=== PATIENT | male | born 1945 | race Caucasian/White ===

== ENCOUNTER 2023-02-06 10:48 | Emergency (ER) | payer MEDICARE ==
--- NOTE | 2023-02-06 11:28 | ED ---
Lower Extremity Injury HPI - General Chief Complaint: Extremity Injury, Lower Stated Complaint: L Leg poss Blood Clot Time Seen by Provider: 02/06/23 11:05 Source: patient, RN notes reviewed Mode of arrival: ambulatory Limitations: no limitations - History of Present Illness Initial Comments: Patient is a 77-year-old male presenting to the emergency room at the direction of urgent care for further evaluation of left knee pain with swelling in the left knee and lower extremity. He reports that the symptoms have been ongoing for approximately 2 weeks. He denies any injury. He reports that the pain is worse in the morning and improves throughout the day. He reports that the swelling worsens throughout the day and is better after waking in the morning. He denies any wounds, injury, redness, warmth, numbness, tingling, range of motion impairment, or calf tenderness. He does have a history of arthritis in his knee with a joint spacer placed 21 years ago to the left knee. In addition to his orthopedic history has a past medical history significant for hypertension. - Related Data Allergies Allergy/AdvReac Type Severity Reaction Status Date / Time No Known Allergies Allergy Verified 02/06/23 10:59 Review of Systems ROS Statement: Those systems with pertinent positive or pertinent negative responses have been documented in the HPI. ROS Other: All systems not noted in ROS Statement are negative. Past Medical History Past Medical History: Hypertension History of Any Multi-Drug Resistant Organisms: None Reported Past Surgical History: Orthopedic Surgery Past Anesthesia/Blood Transfusion Reactions: No Reported Reaction Past Psychological History: No Psychological Hx Reported Smoking Status: Never smoker Past Alcohol Use History: Daily Past Drug Use History: None Reported General Exam Limitations: no limitations General appearance: alert, in no apparent distress Head exam: Present: atraumatic, normocephalic, normal inspection Eye exam: Present: normal appearance, PERRL, EOMI. Absent: scleral icterus, conjunctival injection, periorbital swelling ENT exam: Present: normal exam Neck exam: Present: normal inspection Respiratory exam: Absent: respiratory distress, accessory muscle use Cardiovascular Exam: Present: regular rate GI/Abdominal exam: Absent: distended Left Knee exam: Present: full ROM, swelling, effusion, full knee extension. Absent: abrasion, laceration, ecchymosis, crepitus, dislocation, erythema Lower Leg exam: Present: swelling. Absent: tenderness, ecchymosis, erythema, Homans' sign Neurovascular tendon exam: Present: no vascular compromise Gait: observed and normal Back exam: Present: normal inspection Neurological exam: Present: alert, oriented X3, CN II-XII intact Psychiatric exam: Present: normal affect, normal mood Skin exam: Present: warm, dry, intact, normal color. Absent: rash Course Vital Signs 02/06/23 02/06/23 11:00 13:36 Temperature 98.1 F 97.9 F Pulse Rate 96 64 Respiratory 16 18 Rate Blood Pressure 164/78 163/75 O2 Sat by Pulse 97 99 Oximetry Medical Decision Making - Medical Decision Making Was pt. sent in by a medical professional or institution (, PA, ENDOSCOPY TECHNICAN, urgent care, hospital, or alf...) When possible be specific @ -Yes, sent to the emergency room by urgent care Did you speak to anyone other than the patient for history (EMS, parent, family, police, friend...)? What history was obtained from this source @ -No Did you review nursing and triage notes (agree or disagree)? Why? @ -I reviewed and agree with nursing and triage notes Were old charts reviewed (outside hosp., previous admission, EMS record, old EKG, old radiological studies, urgent care reports/EKG's, alf records)? Report findings @ -No old charts were reviewed Differential Diagnosis (chest pain, altered mental status, abdominal pain women, abdominal pain men, vaginal bleeding, weakness, fever, dyspnea, syncope, heada irma, dizziness, GI bleed, back pain, seizure, CVA, palpatations, mental health, musculoskeletal)? @ -Differential Musculoskeletal Muscular strain, contusion, ligament sprain, fracture, arthritis, septic arthritis, bursitis, cellulitis, muscle spasm, nerve compression, DVT, arterial occlusion, herpes zoster, electrolyte abnormality, tumor.... This is not meant to be in all inclusive list EKG interpreted by me (3pts min.). @ -None done X-rays interpreted by me (1pt min.). @ -X-ray left knee: Moderate suprapatellar bursal fluid collection, and postsurgical changes, no fracture or dislocation. CT interpreted by me (1pt min.). @ -None done U/S (1pt. min.). @ -Ultrasound venous Doppler left lower extremity report per radiologist not interpreted by me: No evidence of DVT of the left lower extremity, left popliteal fossa complex fluid collection left intra-patellar fluid collection What testing was considered but not performed or refused? (CT, X-rays, U/S, labs)? Why? @ -None What meds were considered but not given or refused? Why? @ -Analgesics offered and declined Did you discuss the management of the patient with other professionals (professionals i.e. Dr., PA, ENDOSCOPY TECHNICAN, lab, RT, psych nurse, social science instructor, electrochemist, teacher, landing signal officer, medical case manager)? Give summary @ -No Was smoking cessation discussed for >3mins.? @ -No Was critical care preformed (if so, how long)? @ -No Were there social determinants of health that impacted care today? How? (Homelessness, low income, unemployed, alcoholism, drug addiction, transportation, low edu. Level, literacy, decrease access to med. care, fdc, rehab)? @ -No Was there de-escalation of care discussed even if they declined (Discuss DNR or withdrawal of care, Hospice)? DNR status @ -No What co-morbidities impacted this encounter? (DM, HTN, Smoking, COPD, CAD, Cancer, CVA, ARF, Chemo, Hep., AIDS, mental health diagnosis, sleep apnea, morbid obesity)? @ -None Was patient admitted / discharged? Hospital course, mention meds given and route, prescriptions, significant lab abnormalities, going to OR and other pertinent info. @ -77-year-old male presenting for evaluation of left knee pain with swelling in the left knee and lower extremity on going for 2 weeks without any trauma. Analgesics offered and declined. Pain consistent with osteoarthritis and swelling consistent with dependent edema secondary to osteoarthritis worsening throughout the day however urgent care concerned regarding possibility of DVT will proceed with x-ray along with venous Doppler. No indication for any laboratory studies. Ultrasound negative for DVT, x-ray and ultrasound consistent with moderate left knee effusion and osteoarthritis. Findings discussed with patient at length. No indication for further testing. Encouraged avoidance of high impact activities, range of motion, rest and ice when possible. Encouraged to utilize o [id number] Tylenol or ibuprofen for pain as needed recommend following up with your orthopedist or orthopedist online content coordinator along with your primary care provider. Information of on-call orthopedist provided. Questions and concerns answered. Return parameters to the emergency room discussed. Will discharge home in stable condition with [id number] analgesics, gentle range of motion and rest along with follow-up with primary care provider and orthopedist for left knee effusion and left arthritis. Undiagnosed new problem with uncertain prognosis? @ -No Drug Therapy requiring intensive monitoring for toxicity (Heparin, Nitro, Insulin, Cardizem)? @ -No Were any procedures done? @ -No Diagnosis/symptom? @ -Left knee effusion Acute, or Chronic, or Acute on Chronic? @ -Acute Uncomplicated (without systemic symptoms) or Complicated (systemic symptoms)? @ -Uncomplicated Side effects of treatment? @ -No Exacerbation, Progression, or Severe Exacerbation? @ -No Poses a threat to life or bodily function? How? (Chest pain, [place], [place], pneumonia, PE, COPD, DKA, ARF, appy, cholecystitis, CVA, Diverticulitis, Homicidal, Suicidal, threat to staff... and all critical care pts) @ -No Diagnosis/symptom? @ -Left knee osteoarthritis Acute, or Chronic, or Acute on Chronic? @ -Acute Uncomplicated (without systemic symptoms) or Complicated (systemic symptoms)? @ -Uncomplicated Side effects of treatment? @ -none Exacerbation, Progression, or Severe Exacerbation] @ -no Poses a threat to life or bodily function? @ -no Case discussed with Dr. Aguayo. - Radiology Data Radiology results: report reviewed, image reviewed Disposition Clinical Impression: Knee effusion, left, Arthritis of left knee Disposition: HOME SELF-CARE Condition: Stable Instructions (If sedation given, give patient instructions): Knee Pain (ED) Additional Instructions: Please utilize [id number] Motrin or Tylenol arthritis for pain as needed. Gentle range of motion encouraged. Avoid high impact activities. Apply ice and elevate joint when possible. Please follow-up with orthopedist. Please return to the Emergency Department if symptoms worsen or any other concerns. Is patient prescribed a controlled substance at d/c from ED?: No Referrals: Manan Arizmendi DO [Primary Care Provider] - 1-2 days Aurelio Guerra MD [Medical Doctor] - 1-2 days Time of Disposition: 13:25
--- NOTE | 2023-02-06 11:55 | XR ---
EXAMINATION TYPE: XR knee complete LT DATE OF EXAM: 02/06/2023 COMPARISON: NONE HISTORY: pain swelling TECHNIQUE: Three views are submitted. FINDINGS: There is postsurgical change compatible with previous hemiarthroplasty. Chondrocalcinosis involving t he lateral compartment and moderate hypertrophic changes of the patellofemoral compartment. Moderate suprapatellar bursal fluid collection. Vascular calcifications. Osseous structures are intact. No ac [place] fracture seen. IMPRESSION: 1. Postsurgical changes moderate to large sized patellar bursal collection containing calcifications. May be posttraumatic or postinflammatory. Correlate clinically. 2. Osteoarthritis versus deposition arthropathy of the lateral compartment and patellofemoral joint.
--- NOTE | 2023-02-06 12:47 | US ---
EXAMINATION TYPE: US venous doppler duplex LE LT DATE OF EXAM: 02/06/2023 12:28 PM COMPARISON: NONE CLINICAL INDICATION: Male, 77 years old with history of pain swelling; anterior knee pain, calf swell ing, post knee tightness x 3 weeks SIDE PERFORMED: Left TECHNIQUE: The lower extremity deep venous system is examined utilizing real time linear array sonog guille with graded compression, doppler sonography and color-flow sonography. VESSELS IMAGED: Common Femoral Vein Deep Femoral Vein Greater Saphenous Vein * Femoral Vein Popliteal Vein Small Saphenous Vein * Proximal Calf Veins (* superficial vessels) Grayscale, color doppler, spectral doppler imaging performed of the deep veins of the lower extremiti es. There is normal flow and compressibility. Left Leg: Negative for DVT Left posterior fossa, complex area appears to extend from joint space measuring 5.9x2.5x1.4cm Left calf edema noted Left anterior knee at area on concern scanned, fluid collection noted in infrapatellar region waveforms appear arterialized rather than respirophasic IMPRESSION: 1. No ultrasound evidence for deep venous thrombosis of the left lower extremity. 2. Left popliteal fossa complex fluid collection which may represent a complex Sosa's cyst versus he matoma. 3. Left infrapatellar fluid collection possibly representing a seroma.
[2023-02-06 13:41] VITALS: BP 163/75; PULSE 64; RESP 18; TEMP 97.9
== END 2023-02-06 13:42 | disposition home or self-care (01) ==
LOC: EC 10:48
DX: M17.12 Unilateral primary osteoarthritis, left knee (principal); M25.462 Effusion, left knee; I10 Essential (primary) hypertension
CPT/HCPCS: 99284

== ENCOUNTER 2024-11-05 20:19 | Inpatient (IN) | payer MEDICARE ==
[2024-11-05 21:39] LABS: AST 27 U/L (17-59); African American GFR (CKD) 46 (>60 ml/min/1.73 sqM); Albumin 4.1 g/dL (3.5-5.0); Alkaline Phosphatase 56 U/L (38-126); Anion Gap 18 mmol/L; Blood Urea Nitrogen 20 mg/dL (9-20); Carbon Dioxide 15 mmol/L (22-30); Chloride 101 mmol/L (98-107); Glucose 142 mg/dL (74-99); Non-African American GFR(CKD) 40 (>60 ml/min/1.73 sqM); Potassium 4.5 mmol/L (3.5-5.1); Sodium 134 mmol/L (137-145); Total Bilirubin 1.2 mg/dL (0.2-1.3); Total Protein 6.7 g/dL (6.3-8.2)
[2024-11-05] MEDS: LACTATED RINGERS 1,000 ML IV SCH ×3 (21:40→23:47)
[2024-11-05 21:42] LABS: INR 1.1 (<1.2); Partial Thromboplastin Time 24.1 sec (22.0-30.0); Prothrombin Time 12.3 sec (10.0-12.5)
[2024-11-05 21:45] LABS: ALT 32 U/L (4-49)
--- NOTE | 2024-11-05 21:52 | ED ---
General Adult HPI - General Source: patient Mode of arrival: wheelchair Limitations: no limitations - History of Present Illness Onset/Timin -: hour(s) Location: abdomen Radiation: non-radiation Quality: dull Consistency: constant Improves with: none Worsens with: none Associated Symptoms: nausea/vomiting Treatments Prior to Arrival: none <Parminder Aguayo - Last Filed: 11/05/24 22:24> <Yara Self - Last Filed: 11/06/24 09:14> - General Chief complaint: Nausea/Vomiting/Diarrhea Stated complaint: Shakes/Abd Pain Time Seen by Provider: 11/05/24 20:36 - History of Present Illness Initial comments: This patient is an 79-year-old man who presents to have evaluation of epigastric discomfort and shaking. The patient noticed onset of epigastric discomfort and shaking around 3 in the morning. Patient states that he was eventually able to get back to sleep but symptoms recurred today after he took a glass of milk. He has had some associated nausea. Patient states no change in bowel movements or urination. (Parminder Aguayo) - Related Data Allergies Allergy/AdvReac Type Severity Reaction Status Date / Time No Known Allergies Allergy Verified 11/05/24 20:33 Review of Systems ROS Other: All systems not noted in ROS Statement are negative. Constitutional: Reports: chills. Denies: weakness ENT: Denies: throat pain, congestion Respiratory: Denies: cough, dyspnea Cardiovascular: Denies: chest pain, palpitations, edema, syncope Gastrointestinal: Reports: abdominal pain, nausea. Denies: vomiting, diarrhea, constipation, melena, hematochezia Genitourinary: Denies: dysuria, hematuria, testicular pain, testicular mass Musculoskeletal: Denies: back pain Skin: Denies: rash Neurological: Denies: headache, weakness, numbness <Parminder Aguayo - Last Filed: 11/05/24 22:24> ROS Other: All systems not noted in ROS Statement are negative. <Yara Self - Last Filed: 11/06/24 09:14> ROS Statement: Those systems with pertinent positive or pertinent negative responses have been documented in the HPI. Past Medical History Past Medical History: Hypertension History of Any Multi-Drug Resistant Organisms: None Reported Past Surgical History: Orthopedic Surgery Additional Past Surgical History / Comment(s): Left knee replacement, rt eye surgery Past Anesthesia/Blood Transfusion Reactions: No Reported Reaction Past Psychological History: No Psychological Hx Reported Smoking Status: Never smoker Past Alcohol Use History: Daily Past Drug Use History: None Reported <Parminder Aguayo - Last Filed: 11/05/24 22:24> General Exam Limitations: no limitations General appearance: alert, in no apparent distress Head exam: Present: atraumatic, normocephalic Eye exam: Present: normal appearance. Absent: scleral icterus, conjunctival injection ENT exam: Present: normal oropharynx Neck exam: Present: normal inspection Respiratory exam: Present: normal lung sounds bilaterally. Absent: respiratory distress, wheezes, rales, rhonchi, stridor, accessory muscle use Cardiovascular Exam: Present: normal rhythm, tachycardia, normal heart sounds. Absent: systolic murmur, diastolic murmur, rubs, gallop GI/Abdominal exam: Present: soft. Absent: distended, tenderness, guarding, rebound, rigid, mass Extremities exam: Present: normal inspection, normal capillary refill. Absent: pedal edema, calf tenderness Back exam: Present: normal inspection. Absent: CVA tenderness (R), CVA tenderness (L) Neurological exam: Present: alert Skin exam: Present: warm, dry, intact, normal color. Absent: rash <Parminder Aguayo - Last Filed: 11/05/24 22:24> Course Vital Signs 11/05/24 11/05/24 11/06/24 20:27 23:33 01:30 Temperature 100.0 F H Pulse Rate 128 H 92 94 Pulse Rate [ Pulse Oximetery ] Respiratory 18 20 18 Rate Blood Pressure 119/65 97/63 108/76 Blood Pressure [Left Arm Sitting] O2 Sat by Pulse 96 94 L 97 Oximetry 11/06/24 11/06/24 11/06/24 02:00 03:38 05:45 Temperature 98.6 F 98.3 F 97.5 F L Pulse Rate 78 Pulse Rate [ 81 Pulse Oximetery ] Respiratory 16 18 Rate Blood Pressure 96/62 Blood Pressure 123/81 [Left Arm Sitting] O2 Sat by Pulse 95 97 Oximetry 11/06/24 05:50 Temperature Pulse Rate 78 Pulse Rate [ Pulse Oximetery ] Respiratory 15 Rate Blood Pressure Blood Pressure [Left Arm Sitting] O2 Sat by Pulse 99 Oximetry EKG Findings - EKG Comments: EKG Findings:: Possible old inferior infarct. - EKG Results: EKG: interpreted by ERMD, sinus rhythm, normal axis, normal ST/T EKG shows: tachycardia (Rate 111 bpm) <Parminder Aguayo - Last Filed: 11/05/24 22:24> Medical Decision Making - Lab Data Result diagrams: 11/05/24 20:55 11/05/24 20:55 <Parminder Aguayo - Last Filed: 11/05/24 22:24> - Lab Data Result diagrams: 11/06/24 03:33 11/06/24 03:33 <Yara Self - Last Filed: 11/06/24 09:14> - Medical Decision Making Was patient admitted / discharged? Hospital course, mention meds given and route, prescriptions, significant lab abnormalities, going to OR and other pertinent info. @ -Admission-patient was signed out to myself pending completion of urinalysis. He is an 79-year-old gentleman who presented today for shaking, malaise, fever and nausea. Denies additional history. Labs here were significant for lactic acid elevation of 6.4, patient denies history of kidney disease he has a GFR of 40 with creatinine of 1.61. Given no known history of kidney disease I suspect this is secondary to an YARI. Patient did have mild leukocytosis with white blood cell count 11.68, neutrophils elevated of 10.70, urinalysis did require a straight cath specimen, and showed 1+ protein, trace blood, suspect secondary to straight cath however, added KUB to ensure no signs of ureterolithiasis, trace ketones, moderate leukocyte esterase, negative nitrates,, 20 white blood cells, rare white blood cell clumps, rare yeast. Diflucan ordered. Rocephin has a lready been given. Due to significantly elevated lactic acid and YARI with UTI, discussed with patient admission for observation. He is agreeable plan of care. On my assessment and exam he is well-appearing, his abdomen is soft and nontender, no CVA tenderness. Maintenance fluids were ordered. Repeat lactic downtrending to 2.1. Bladder scan showed 0 cc in his bladder. Case discussed with MARINA Partida who kindly excepted patient for admission. Undiagnosed new problem with uncertain prognosis? @ -[No] Drug Therapy requiring intensive monitoring for toxicity (Heparin, Nitro, Insulin, Cardizem)? @ -[No] Were any procedures done? @ -[No] Diagnosis/symptom? @ -YARI, severe sepsis, UTI Acute, or Chronic, or Acute on Chronic? @Acute Uncomplicated (without systemic symptoms) or Complicated (systemic symptoms)? @Complicated Side effects of treatment? @ -[No] Exacerbation, Progression, or Severe Exacerbation? @ -[No] Poses a threat to life or bodily function? How? (Chest pain, USA, RI, pneumonia, PE, COPD, DKA, ARF, appy, cholecystitis, CVA, Diverticulitis, Homicidal, Suicidal, threat to staff... and all critical care pts) @ -Potentially, if left untreated could lead to septic shock and (Yara Self) - Lab Data Lab Results 11/05/24 11/05/24 11/05/24 Range/Units 20:55 20:55 20:55 WBC 11.68 H (4.50-10.00) 10*3/uL RBC 4.34 L (4.40-5.60) 10*6/uL Hgb 14.6 (13.0-17.0) g/dL Hct 41.9 (39.6-50.0) % MCV 96.5 (80.0-97.0) fL MCH 33.6 H (27.0-32.0) pg MCHC 34.8 (32.0-37.0) g/dL Plt Count 238 (140-440) 10*3/uL MPV 9.9 (9.5-12.2) fL Immature Gran % (Auto) 0.4 % Neutrophils % 91.6 % Lymphocytes % 5.9 % Monocytes % 1.7 % Eosinophils % 0.2 % Basophils % 0.2 % Immature Gran # 0.05 H (0.00-0.04) 10*3/uL Neutrophils # 10.70 H (1.80-7.70) 10*3/uL Lymphocytes # 0.69 L (0.90-5.00) 10*3/uL Monocytes # 0.20 (0.20-1.00) 10*3/uL Eosinophils # 0.02 L (0.04-0.35) 10*3/uL Basophils # 0.02 (0.00-0.10) 10*3/uL PT 12.3 (10.0-12.5) sec INR 1.1 (<1.2) APTT 24.1 (22.0-30.0) sec Sodium 134 L (137-145) mmol/L Potassium 4.5 (3.5-5.1) mmol/L Chloride 101 (98-107) mmol/L Carbon Dioxide 15 L (22-30) mmol/L Anion Gap 18 mmol/L BUN 20 (9-20) mg/dL Creatinine 1.61 H (0.66-1.25) mg/dL Est GFR (CKD-EPI)AfAm 46 (>60 ml/min/1.73 sqM) Est GFR (CKD-EPI)NonAf 40 (>60 ml/min/1.73 sqM) Glucose 142 H (74-99) mg/dL Lactic Ac Sepsis Rflx Plasma Lactic Acid [place] (0.7-2.0) mmol/L Calcium 10.0 (8.4-10.2) mg/dL Total Bilirubin 1.2 (0.2-1.3) mg/dL AST 27 (17-59) U/L ALT 32 (4-49) U/L Alkaline Phosphatase 56 (38-126) U/L Total Protein 6.7 (6.3-8.2) g/dL Albumin 4.1 (3.5-5.0) g/dL Urine Color Urine Appearance (Clear) Urine pH (5.0-8.0) Ur Specific [place] (1.001-1.035) Urine Protein (Negative) Urine Glucose (UA) (Negative) Urine Ketones (Negative) Urine Blood (Negative) Urine Nitrite (Negative) Urine Bilirubin (Negative) Urine Urobilinogen (<2.0) mg/dL Ur Leukocyte Esterase (Negative) Urine RBC (0-5) /hpf Urine WBC (0-5) /hpf Urine WBC Clumps (None) /hpf Ur Squamous Epith Cells (0-4) /hpf Cellular Casts (0) /lpf Hyaline Casts (0-2) /lpf Urine Mucus (None) /hpf Urine Yeast (Budding) (None) /hpf Influenza Type A (PCR) (Not Detectd) Influenza Type B (PCR) (Not Detectd) RSV (PCR) (Not Detectd) SARS-CoV-2 (PCR) (Not Detectd) 04/18/25 04/18/25 04/18/25 Range/Units 20:55 22:13 22:20 WBC (4.50-10.00) 10*3/uL RBC (4.40-5.60) 10*6/uL Hgb (13.0-17.0) g/dL Hct (39.6-50.0) % MCV (80.0-97.0) fL MCH (27.0-32.0) pg MCHC (32.0-37.0) g/dL Plt Count (140-440) 10*3/uL MPV (9.5-12.2) fL Immature Gran % (Auto) % Neutrophils % % Lymphocytes % % Monocytes % % Eosinophils % % Basophils % % Immature Gran # (0.00-0.04) 10*3/uL Neutrophils # (1.80-7.70) 10*3/uL Lymphocytes # (0.90-5.00) 10*3/uL Monocytes # (0.20-1.00) 10*3/uL Eosinophils # (0.04-0.35) 10*3/uL Basophils # (0.00-0.10) 10*3/uL PT (10.0-12.5) sec INR (<1.2) APTT (22.0-30.0) sec Sodium (137-145) mmol/L Potassium (3.5-5.1) mmol/L Chloride (98-107) mmol/L Carbon Dioxide (22-30) mmol/L Anion Gap mmol/L BUN (9-20) mg/dL Creatinine (0.66-1.25) mg/dL Est GFR (CKD-EPI)AfAm (>60 ml/min/1.73 sqM) Est GFR (CKD-EPI)NonAf (>60 ml/min/1.73 sqM) Glucose (74-99) mg/dL Lactic Ac Sepsis Rflx Y Plasma Lactic Acid [place] 6.4 H* (0.7-2.0) mmol/L Calcium (8.4-10.2) mg/dL Total Bilirubin (0.2-1.3) mg/dL AST (17-59) U/L ALT (4-49) U/L Alkaline Phosphatase (38-126) U/L Total Protein (6.3-8.2) g/dL Albumin (3.5-5.0) g/dL Urine Color Urine Appearance (Clear) Urine pH (5.0-8.0) Ur Specific [place] (1.001-1.035) Urine Protein (Negative) Urine Glucose (UA) (Negative) Urine Ketones (Negative) Urine Blood (Negative) Urine Nitrite (Negative) Urine Bilirubin (Negative) Urine Urobilinogen (<2.0) mg/dL Ur Leukocyte Esterase (Negative) Urine RBC (0-5) /hpf Urine WBC (0-5) /hpf Urine WBC Clumps (None) /hpf Ur Squamous Epith Cells (0-4) /hpf Cellular Casts (0) /lpf Hyaline Casts (0-2) /lpf Urine Mucus (None) /hpf Urine Yeast (Budding) (None) /hpf Influenza Type A (PCR) Not Detected (Not Detectd) Influenza Type B (PCR) Not Detected (Not Detectd) RSV (PCR) Not Detected (Not Detectd) SARS-CoV-2 (PCR) Not Detected (Not Detectd) 11/05/24 11/06/24 11/06/24 Range/Units 23:35 01:35 02:11 WBC (4.50-10.00) 10*3/uL RBC (4.40-5.60) 10*6/uL Hgb (13.0-17.0) g/dL Hct (39.6-50.0) % MCV (80.0-97.0) fL MCH (27.0-32.0) pg MCHC (32.0-37.0) g/dL Plt Count (140-440) 10*3/uL MPV (9.5-12.2) fL Immature Gran % (Auto) % Neutrophils % % Lymphocytes % % Monocytes % % Eosinophils % % Basophils % % Immature Gran # (0.00-0.04) 10*3/uL Neutrophils # (1.80-7.70) 10*3/uL Lymphocytes # (0.90-5.00) 10*3/uL Monocytes # (0.20-1.00) 10*3/uL Eosinophils # (0.04-0.35) 10*3/uL Basophils # (0.00-0.10) 10*3/uL PT (10.0-12.5) sec INR (<1.2) APTT (22.0-30.0) sec Sodium (137-145) mmol/L Potassium (3.5-5.1) mmol/L Chloride (98-107) mmol/L Carbon Dioxide (22-30) mmol/L Anion Gap mmol/L BUN (9-20) mg/dL Creatinine (0.66-1.25) mg/dL Est GFR (CKD-EPI)AfAm (>60 ml/min/1.73 sqM) Est GFR (CKD-EPI)NonAf (>60 ml/min/1.73 sqM) Glucose (74-99) mg/dL Lactic Ac Sepsis Rflx Y Plasma Lactic Acid [place] 2.1 H* (0.7-2.0) mmol/L Calcium (8.4-10.2) mg/dL Total Bilirubin (0.2-1.3) mg/dL AST (17-59) U/L ALT (4-49) U/L Alkaline Phosphatase (38-126) U/L Total Protein (6.3-8.2) g/dL Albumin (3.5-5.0) g/dL Urine Color Yellow Urine Appearance Cloudy (Clear) Urine pH 5.5 (5.0-8.0) Ur Specific [place] 1.022 (1.001-1.035) Urine Protein 1+ H (Negative) Urine Glucose (UA) Negative (Negative) Urine Ketones Negative (Negative) Urine Blood Trace H (Negative) Urine Nitrite Negative (Negative) Urine Bilirubin 1+ H (Negative) Urine Urobilinogen 2.0 (<2.0) mg/dL Ur Leukocyte Esterase Moderate H (Negative) Urine RBC 4 (0-5) /hpf Urine WBC 20 H (0-5) /hpf Urine WBC Clumps Rare H (None) /hpf Ur Squamous Epith Cells <1 (0-4) /hpf Cellular Casts 1 (0) /lpf Hyaline Casts 110 H (0-2) /lpf Urine Mucus Occasional H (None) /hpf Urine Yeast (Budding) Rare H (None) /hpf Influenza Type A (PCR) (Not Detectd) Influenza Type B (PCR) (Not Detectd) RSV (PCR) (Not Detectd) SARS-CoV-2 (PCR) (Not Detectd) Disposition <Parminder Aguayo - Last Filed: 11/05/24 22:24> <Yara Self - Last Filed: 11/06/24 09:14> Clinical Impression: YARI (acute kidney injury), UTI (urinary tract infection), Hematuria, Sepsis Disposition: ADMITTED IP TO THIS HOSP Condition: Stable
[2024-11-05 22:03] LABS: Basophils # (A) 0.02 10*3/uL (0.00-0.10); Basophils % (A) 0.2 %; Eosinophils # (A) 0.02 10*3/uL (0.04-0.35); Eosinophils % (A) 0.2 %; HCT 41.9 % (39.6-50.0); HGB 14.6 g/dL (13.0-17.0); Lymphocytes # (A) 0.69 10*3/uL (0.90-5.00); Lymphocytes % (A) 5.9 %; MCH 33.6 pg (27.0-32.0); MCHC 34.8 g/dL (32.0-37.0); MCV 96.5 fL (80.0-97.0); Mean Platelet Volume 9.9 fL (9.5-12.2); Monocytes % (A) 1.7 %; Neutrophils % (A) 91.6 %; Platelet Count 238 10*3/uL (140-440); RBC 4.34 10*6/uL (4.40-5.60); RDW 12.2 % (11.5-14.5); WBC 11.68 10*3/uL (4.50-10.00)
[2024-11-05] MEDS: ACETAMINOPHEN TAB 325 MG TAB PO STA (22:08)
[2024-11-05] MEDS: ONDANSETRON 4 MG/2 ML VIAL IVP STA (22:09)
--- NOTE | 2024-11-05 22:32 | XR ---
EXAMINATION TYPE: XR chest 1V portable DATE OF EXAM: 11/05/2024 9:34 PM COMPARISON: None. CLINICAL INDICATION: Male, 79 years old with history of Fever, TECHNIQUE: XR chest 1V portable views of the chest are obtained. FINDINGS: Demonstrated are scattered senescent parenchymal change. There is no evidence for focal infiltrate. The heart is stable. Hilar and mediastinal structures are within normal limits. Degenerative changes are seen of the dorsal spine. IMPRESSION: 1. Chronic changes without evidence for acute pulmonary disease. [facility], , 11/05/2024 10:30 PM
[2024-11-05 23:22] LABS: Influenza A Not Detected (Not Detectd); Influenza B Not Detected (Not Detectd); RSV Not Detected (Not Detectd)
[2024-11-06] MEDS: LACTATED RINGERS 1,000 ML IV ONE (00:09)
[2024-11-06 00:19] LABS: Appearance,Urine Cloudy (Clear); Bilirubin,Urine 1+ (Negative); Blood,Urine Trace (Negative); Budding Yeast,Urine Rare /hpf; Cellular Casts,Urine 1 /lpf (0); Color,Urine Yellow; Glucose,Urine (UA) Negative (Negative); Hyaline Casts,Urine 110 /lpf (0-2); Ketones,Urine Negative (Negative); Leukocyte Esterase,Urine Moderate (Negative); Mucus,Urine Occasional /hpf; Nitrite,Urine Negative (Negative); PH, Urine 5.5 (5.0-8.0); Protein,Urine 1+ (Negative); RBC,Urine 4 /hpf (0-5); Specific Gravity,Urine 1.022 (1.001-1.035); Squamous Epithelial Cell,Urine <1 /hpf (0-4); WBC,Urine 20 /hpf (0-5)
[2024-11-06] MEDS: FLUCONAZOLE 150 MG TAB PO STA (01:25)
[2024-11-06] MEDS ORDERED: ONDANSETRON 4 MG/2 ML VIAL IVP PRN (02:33)
[2024-11-06] MEDS ORDERED: CALCIUM CARBONATE 500 MG CHEWABLE PO PRN (02:33)
[2024-11-06] MEDS ORDERED: NALOXONE 0.4 MG/ML 1 ML VIAL IV PRN (02:33)
[2024-11-06] MEDS ORDERED: MAG HYDROX/AL HYDROX/SIMETH 30 ML CUP PO PRN (02:33)
[2024-11-06 03:44] LABS: Basophils # (A) 0.07 10*3/uL (0.00-0.10); Basophils % (A) 0.3 %; Eosinophils # (A) 0.03 10*3/uL (0.04-0.35); Eosinophils % (A) 0.1 %; HCT 37.6 % (39.6-50.0); HGB 13.4 g/dL (13.0-17.0); Lymphocytes # (A) 1.41 10*3/uL (0.90-5.00); Lymphocytes % (A) 6.5 %; MCH 34.5 pg (27.0-32.0); MCHC 35.6 g/dL (32.0-37.0); MCV 96.9 fL (80.0-97.0); Mean Platelet Volume 9.8 fL (9.5-12.2); Monocytes # (A) 1.33 10*3/uL (0.20-1.00); Monocytes % (A) 6.1 %; Neutrophils # (A) 18.76 10*3/uL (1.80-7.70); Neutrophils % (A) 85.9 %; Platelet Count 204 10*3/uL (140-440); RBC 3.88 10*6/uL (4.40-5.60); RDW 12.4 % (11.5-14.5); WBC 21.85 10*3/uL (4.50-10.00)
[2024-11-06 04:17] LABS: ALT 34 U/L (4-49); AST 41 U/L (17-59); African American GFR (CKD) 48 (>60 ml/min/1.73 sqM); Albumin 3.5 g/dL (3.5-5.0); Alkaline Phosphatase 41 U/L (38-126); Anion Gap 10 mmol/L; Blood Urea Nitrogen 24 mg/dL (9-20); Calcium 9.6 mg/dL (8.4-10.2); Carbon Dioxide 21 mmol/L (22-30); Chloride 100 mmol/L (98-107); Glucose 120 mg/dL (74-99); Non-African American GFR(CKD) 41 (>60 ml/min/1.73 sqM); Sodium 131 mmol/L (137-145); Total Bilirubin 0.8 mg/dL (0.2-1.3); Total Protein 5.9 g/dL (6.3-8.2)
[2024-11-06] MEDS: SODIUM CHLORIDE 0.9% 1,000 ML IV SCH ×2 (04:19→06:53)
--- NOTE | 2024-11-06 04:32 | XR ---
EXAM: XR Abdomen, 1 View CLINICAL HISTORY: ITS.REASON XR Reason: YARI hematuria TECHNIQUE: Frontal supine view of the abdomen/pelvis. COMPARISON: No relevant prior studies available. FINDINGS: Gastrointestinal tract: Unremarkable. No dilation. Bones/joints: Lumbar spondylosis. No acute fracture or subluxation. IMPRESSION: No acute fracture or subluxation.
[2024-11-06] MEDS: LACTATED RINGERS 500 ML IV ONE (04:45)
[2024-11-06] MEDS ORDERED: cefTRIAXone IN SWFI 1,000 MG/10 ML SYRINGE IVP SCH (09:00)
[2024-11-06] MEDS: ENOXAPARIN 40 MG/0.4 ML SYRINGE SQ SCH (09:18)
[2024-11-06] MEDS: SODIUM CHLORIDE 0.9% 500 ML 500 ML IV ONE (09:18)
[2024-11-06] MEDS: FAMOTIDINE 20 MG TAB PO SCH (09:18)
--- NOTE | 2024-11-06 09:48 | P.NPCON ---
History of Present Illness - Reason for Consult acute renal failure - History of Present Illness Reason for consultation: Acute kidney injury History of present illness: Patient is a 79-year-old male seen in consultation for acute kidney injury. Creatinine 1.61 on admission last night and was 1.57 this morning. Unknown baseline renal function. Patient denies personal history of kidney disease. Patient came to the hospital due to epigastric pain which began the night prior to admission. Patient states he also woke up with chills and had a fever. He denies vomiting or diarrhea. Denies cough. Denies regular use of nonsteroidals. Denies history of diabetes or coronary disease. He has been vo iding. Patient states he required straight catheterization once this admission. Blood pressure noted to be in the systolic 90s this admission. He did receive 2.5 L bolus of LR and is currently receiving normal saline at 100 cc an hour. Lactic acid level trending down and was 1.8 as of this morning. Vital signs are stable. General: No acute distress. HEENT: Head exam is unremarkable. LUNGS: No audible rhonchi or wheezes. HEART: Rate and Rhythm are regular. ABDOMEN: Nontender. EXTREMITITES: No edema. Past Medical History Past Medical History: Hypertension History of Any Multi-Drug Resistant Organisms: None Reported Past Surgical History: Orthopedic Surgery Additional Past Surgical History / Comment(s): Left knee replacement, rt eye surgery Past Anesthesia/Blood Transfusion Reactions: No Reported Reaction Past Psychological History: No Psychological Hx Reported Smoking Status: Former smoker Past Alcohol Use History: Daily Past Drug Use History: None Reported Medications and Allergies Allergies Allergy/AdvReac Type Severity Reaction Status Date / Time No Known Allergies Allergy Verified 11/05/24 20:33 Physical Exam Vitals: Vital Signs Temp Pulse Pulse Resp BP BP Pulse Ox 11/06/24 05:50 78 15 99 11/06/24 05:45 97.5 F L 81 18 123/81 97 11/06/24 03:38 98.3 F 78 16 96/62 95 11/06/24 02:00 98.6 F 11/06/24 01:30 94 18 108/76 97 11/05/24 23:33 92 20 97/63 94 L 11/05/24 20:27 100.0 F H 128 H 18 119/65 96 Intake and Output 11/05/24 11/06/24 11/06/24 22:59 06:59 14:59 Intake Total 100 Balance 100 Intake: Oral 100 Other: Weight 90.718 kg 90.718 kg Results - Lab Results Most recent lab results Calcium 9.6 mg/dL (8.4-10.2) 11/06/24 03:33 11/06/24 03:33 11/06/24 03:33 Assessment and Plan Plan: Assessment: 1. Acute kidney injury secondary to ATN secondary to severe sepsis versus underlying chronic kidney disease. Creatinine stable at 1.57 today. 2. Severe sepsis with abdominal pain. Consider CT scan and surgery eval. Defer to primary team. 3. Metabolic acidosis secondary to lactic acidosis. Improved. 4. Hyponatremia secondary to acute kidney injury. Plan: Maintain normal saline. Check bladder scan to rule out urinary retention. He did require straight catheterization once this admission. Follow-up cultures. Check renal ultrasound. Avoid nephrotoxins. Continue to monitor renal function and urine output Thank you for the consultation. I will continue to follow the patient with you during his hospital stay.
--- NOTE | 2024-11-06 12:10 | P.HPIM ---
History of Present Illness H&P Date: 11/06/24 History of present illness; Patient is an 79-year-old man with hypertension who presents with epigastric pain and shaking. Patient states his symptoms began 2 nights ago at 3 AM when he began to shake intensely and have some epigastric abdominal pain which lasted for about 3 hours. He later was able to get back to sleep and later on in the day his symptoms reoccurred. He endorses associated nausea. He states he has no change in bowel movements or urination. He is denying vomiting, constipation, diarrhea, dysuria. He is denying any chest pain or shortness of breath. Spoke with the ER physician, patient admission was accepted by internal medicine service for treatment. REVIEW OF SYSTEMS: Pertinent positives and negatives noted in HPI. PHYSICAL EXAMINATION: Vitals reviewed GENERAL: Resting comfortably in bed. EYES: PERRL, no scleral injection or icterus. No vision loss HENT: Normocephalic, atraumatic, hearing grossly intact, moist mucous membranes NECK: No tracheal deviation, full range of motion. CARDIOVASCULAR: S1 and S2 present. No murmurs, rubs, or gallops. PULMONARY: Chest is clear to auscultation, no wheezing, rhonchi, or crackles. ABDOMEN: Soft, nontender, nondistended. No palpable organomegaly. MUSCULOSKELETAL: No apparent joint swelling and deformities. EXTREMITIES: No apparent cyanosis, clubbing. No pedal edema. NEUROLOGICAL: Alert and oriented. Gross neurological examination with no apparent focal deficits. SKIN: No apparent rashes. ER FINDINGS: Labs significant for WBC 11.6 => 21.8, sodium 134 => 131, bicarb 15 => 21, BUN 28 => 24, creatinine 1.6 => 1.5, glucose 142 => 120, lactic acid 6.4 => 2.7 => 1.8, UA with findings of moderate leukocyte esterase, 20 WBC, hyaline casts 110, respiratory panel negative. EKG independently interpreted showed sinus tachycardia heart rate of 111, QTc 365, no ST segment elevation or depression seen, no T-wave inversions seen. Chest x-ray done independently interpreted showed Chronic changes without evidence for acute pulmonary disease. KUB independently interpreted as No acute fracture or subluxation. No signs of obstruction. Assessment and Plan: In summary, Patient is an 79-year-old man who presents to have evaluation of epigastric discomfort and chills. # Severe sepsis, likely due to UTI secondary to urinary retention Heart rate 128, WBC 21.8 Given 2 L fluid resuscitation Begin ceftriaxone 1 g daily Blood cultures pending Monitor CBC #YARI versus underlying CKD, nonoliguric, secondary to sepsis #Urinary retention Patient straight cath once during admission Bladder scan, renal ultrasound ordered Maintain normal saline Neurology consulted Chronic Medical Conditions #Hypertension Resume home medications DVT ppx: Subq Lovenox 40 meq daily Code status: Full code F: IV Normal saline 100 mL/hr E: Replete as needed N: Regular diet A: Ambulatory Anticipated discharge place: Pending clinical course Anticipated discharge time: Pending clinical course Dr. Zelaya seen patient with resident, present during exam, and agreed with findings. Dictation was produced using [employer] dictation software. Please excuse any grammatical, word or spelling errors. Past Medical History Past Medical History: Hypertension History of Any Multi-Drug Resistant Organisms: None Reported Past Surgical History: Orthopedic Surgery Additional Past Surgical History / Comment(s): Left knee replacement, rt eye surgery Past Anesthesia/Blood Transfusion Reactions: No Reported Reaction Past Psychological History: No Psychological Hx Reported Smoking Status: Former smoker Past Alcohol Use History: Daily Past Drug Use History: None Reported Medications and Allergies Home Medications Medication Instructions Recorded Confirmed Type Losartan [Cozaar] 50 mg PO DAILY 11/06/24 11/06/24 History Allergies Allergy/AdvReac Type Severity Reaction Status Date / Time No Known Allergies Allergy Verified 11/06/24 10:22 Physical Exam Vitals: Vital Signs Temp Pulse Pulse Resp BP BP Pulse Ox 11/06/24 05:50 78 15 99 11/06/24 05:45 97.5 F L 81 18 123/81 97 11/06/24 03:38 98.3 F 78 16 96/62 95 11/06/24 02:00 98.6 F 11/06/24 01:30 94 18 108/76 97 11/05/24 23:33 92 20 97/63 94 L 11/05/24 20:27 100.0 F H 128 H 18 119/65 96 Intake and Output 11/05/24 11/06/24 11/06/24 22:59 06:59 14:59 Other: Weight 90.718 kg 90.718 kg Results CBC & Chem 7: 11/06/24 03:33 11/06/24 03:33 Labs: Abnormal Lab Results - Last 24 Hours (Table) 11/05/24 11/05/24 11/05/24 Range/Units 20:55 20:55 20:55 WBC 11.68 H (4.50-10.00) 10*3/uL RBC 4.34 L (4.40-5.60) 10*6/uL Hct (39.6-50.0) % MCH 33.6 H (27.0-32.0) pg Immature Gran # 0.05 H (0.00-0.04) 10*3/uL Neutrophils # 10.70 H (1.80-7.70) 10*3/uL Lymphocytes # 0.69 L (0.90-5.00) 10*3/uL Monocytes # (0.20-1.00) 10*3/uL Eosinophils # 0.02 L (0.04-0.35) 10*3/uL Sodium 134 L (137-145) mmol/L Carbon Dioxide 15 L (22-30) mmol/L BUN (9-20) mg/dL Creatinine 1.61 H (0.66-1.25) mg/dL Glucose 142 H (74-99) mg/dL Plasma Lactic Acid Mekhi 6.4 H* (0.7-2.0) mmol/L Total Protein (6.3-8.2) g/dL Urine Protein (Negative) Urine Blood (Negative) Urine Bilirubin (Negative) Ur Leukocyte Esterase (Negative) Urine WBC (0-5) /hpf Urine WBC Clumps (None) /hpf Hyaline Casts (0-2) /lpf Urine Mucus (None) /hpf Urine Yeast (Budding) (None) /hpf 11/05/24 11/06/24 11/06/24 Range/Units 23:35 01:35 03:33 WBC 21.85 H (4.50-10.00) 10*3/uL RBC 3.88 L (4.40-5.60) 10*6/uL Hct 37.6 L (39.6-50.0) % MCH 34.5 H (27.0-32.0) pg Immature Gran # 0.25 H (0.00-0.04) 10*3/uL Neutrophils # 18.76 H (1.80-7.70) 10*3/uL Lymphocytes # (0.90-5.00) 10*3/uL Monocytes # 1.33 H (0.20-1.00) 10*3/uL Eosinophils # 0.03 L (0.04-0.35) 10*3/uL Sodium (137-145) mmol/L Carbon Dioxide (22-30) mmol/L BUN (9-20) mg/dL Creatinine (0.66-1.25) mg/dL Glucose (74-99) mg/dL Plasma Lactic Acid Mekhi 2.1 H* (0.7-2.0) mmol/L Total Protein (6.3-8.2) g/dL Urine Protein 1+ H (Negative) Urine Blood Trace H (Negative) Urine Bilirubin 1+ H (Negative) Ur Leukocyte Esterase Moderate H (Negative) Urine WBC 20 H (0-5) /hpf Urine WBC Clumps Rare H (None) /hpf Hyaline Casts 110 H (0-2) /lpf Urine Mucus Occasional H (None) /hpf Urine Yeast (Budding) Rare H (None) /hpf 11/06/24 11/06/24 Range/Units 03:33 03:33 WBC (4.50-10.00) 10*3/uL RBC (4.40-5.60) 10*6/uL Hct (39.6-50.0) % MCH (27.0-32.0) pg Immature Gran # (0.00-0.04) 10*3/uL Neutrophils # (1.80-7.70) 10*3/uL Lymphocytes # (0.90-5.00) 10*3/uL Monocytes # (0.20-1.00) 10*3/uL Eosinophils # (0.04-0.35) 10*3/uL Sodium 131 L (137-145) mmol/L Carbon Dioxide 21 L (22-30) mmol/L BUN 24 H (9-20) mg/dL Creatinine 1.57 H (0.66-1.25) mg/dL Glucose 120 H (74-99) mg/dL Plasma Lactic Acid Mekhi 2.7 H* (0.7-2.0) mmol/L Total Protein 5.9 L (6.3-8.2) g/dL Urine Protein (Negative) Urine Blood (Negative) Urine Bilirubin (Negative) Ur Leukocyte Esterase (Negative) Urine WBC (0-5) /hpf Urine WBC Clumps (None) /hpf Hyaline Casts (0-2) /lpf Urine Mucus (None) /hpf Urine Yeast (Budding) (None) /hpf Thrombosis Risk Factor Assmnt - Choose All That Apply Each Factor Represents 1 point: Obesity (BMI >25) Each Risk Factor Represents 3 Points: Age 75 years or older Thrombosis Risk Factor Assessment Total Risk Factor Score: 4 Thrombosis Risk Factor Assessment Level: Moderate Risk
--- NOTE | 2024-11-06 12:26 | US ---
EXAMINATION TYPE: US kidneys/renal and bladder DATE OF EXAM: 11/06/2024 COMPARISON: NONE CLINICAL INDICATION: Male, 79 years old with history of sarah; TECHNIQUE: Grayscale imaging of the bilateral kidneys and urinary bladder: FINDINGS: EXAM MEASUREMENTS: Right Kidney: 11.1x5.4x5.7 cm Left Kidney: 10.4x5.9x5.6 cm Right Kidney: No hydronephrosis or masses seen Left Kidney: ?echogenic foci seen: 0.8cm Bladder: wnl Prostate: ? Slightly enlarged: 5.0x4.4x5.6cm ?Hypoechoic areas seen w/ vascularity within prostate vs other: Largest: 1. 3.7x2.9x2.7cm 2. 3.1x2.5x2.8cm Bilateral Jets seen: limited IMPRESSION: 1. No solid renal mass or hydronephrosis. 2. Probable 8 mm calculus in the left kidney. 3. Moderate prostatic hypertrophy with impression on the bladder base. [facility], Workstation: CARRIE 11/06/2024 12:24 PM
[2024-11-06] MEDS: cefTRIAXone 2 GM in DEXTROSE 5% IN WATER 50 ML IVPB SCH (15:22)
[2024-11-06] MEDS: metroNIDAZOLE-NS PMX 500 MG in SALINE 1 100ML.BAG IVPB SCH (15:25)
[2024-11-06] MEDS: IOPAMIDOL CONTRAST (ORAL USE) VIAL PO PRN (15:25)
--- NOTE | 2024-11-06 16:36 | CT ---
EXAMINATION TYPE: CT abdomen pelvis wo con DATE OF EXAM: 11/06/2024 4:23 PM COMPARISON: None available. CLINICAL INDICATION: Male, 79 years old with history of Bacteremia, abdominal source; Bacteremia, abd ominal source TECHNIQUE: Axial CT abdomen pelvis wo con;Sagittal and coronal reformats were created on a separate workstation. Oral contrast used: with Oral Contrast (none if empty) CT DLP: 770.8 mGycm, Automated exposure control for dose reduction was used. FINDINGS: LOWER CHEST: Unremarkable ABDOMEN LIVER: Unremarkable GALLBLADDER AND BILE DUCTS: Unremarkable. PANCREAS: Unremarkable. SPLEEN: Unremarkable. ADRENAL GLANDS: Unremarkable. KIDNEYS AND URETERS: Punctate nonfasting left renal calculus. No hydronephrosis. No evidence of right -sided nephrolithiasis. PELVIS BLADDER: No evidence for wall thickening or mass given limitations of exam. REPRODUCTIVE: Unremarkable. ABDOMEN & PELVIS STOMACH AND BOWEL: Stomach unremarkable. Moderate-sized duodenal diverticulum with small amount of wa ll thickening and surrounding free fluid at this region (series 3 image 34). SScattered diverticula a re noted throughout the colon without convincing CT evidence of acute diverticulitis. No evidence of bowel obstruction. PERITONEUM/RETROPERITONEUM: No evidence of pneumoperitoneum. Small volume free fluid VASCULATURE: No evidence of aortic aneurysm. MUSCULOSKELETAL: No acute osseous abnormalities LYMPH NODES: No gross evidence for lymphadenopathy. SOFT TISSUE/ABDOMINAL WALL: Unremarkable IMPRESSION: 1. Moderate sized duodenal diverticulum with wall thickening and trace adjacent mesenteric free flui d, possibly reflecting mild acute diverticulitis of the duodenum. No evidence of a drainable fluid co llection/abscess. No free air or contrast extravasation. 2. Extensive colonic diverticulosis without convincing CT evidence of acute diverticulitis. 3. Additional nonacute findings as above. [facility], , 11/06/2024 4:34 PM
[2024-11-07] MEDS: LOSARTAN 50 MG TAB PO SCH (06:16)
[2024-11-07 07:45] LABS: Basophils # (A) 0.04 10*3/uL (0.00-0.10); Basophils % (A) 0.4 %; Eosinophils # (A) 0.39 10*3/uL (0.04-0.35); Eosinophils % (A) 3.9 %; HCT 37.9 % (39.6-50.0); HGB 12.9 g/dL (13.0-17.0); Lymphocytes # (A) 0.84 10*3/uL (0.90-5.00); Lymphocytes % (A) 8.3 %; MCH 33.9 pg (27.0-32.0); MCV 99.5 fL (80.0-97.0); Mean Platelet Volume 10.6 fL (9.5-12.2); Monocytes # (A) 0.79 10*3/uL (0.20-1.00); Monocytes % (A) 7.8 %; Neutrophils # (A) 7.95 10*3/uL (1.80-7.70); Neutrophils % (A) 78.8 %; Platelet Count 174 10*3/uL (140-440); RBC 3.81 10*6/uL (4.40-5.60); RDW 12.3 % (11.5-14.5); WBC 10.09 10*3/uL (4.50-10.00)
[2024-11-07 07:57] LABS: African American GFR (CKD) >90 (>60 ml/min/1.73 sqM); Anion Gap 6 mmol/L; Blood Urea Nitrogen 17 mg/dL (9-20); Calcium 8.5 mg/dL (8.4-10.2); Carbon Dioxide 25 mmol/L (22-30); Chloride 100 mmol/L (98-107); Glucose 97 mg/dL (74-99); Magnesium 1.5 mg/dL (1.6-2.3); Non-African American GFR(CKD) 80 (>60 ml/min/1.73 sqM); Potassium 4.2 mmol/L (3.5-5.1); Sodium 131 mmol/L (137-145)
[2024-11-07] MEDS ORDERED: Magnesium Replacement Protocol 1 EACH MISC MISCELLANE PRN (09:03)
--- NOTE | 2024-11-07 09:58 | P.CONS ---
History of Present Illness - Reason for Consult Consult date: 11/06/24 Bacteremia Requesting physician: Ki Olvera - Chief Complaint Epigastric pain and chills x 1 day - History of Present Illness Patient is a 79-year-old male with a past medical history significant for hypertension presenting to the hospital for evaluation of shaking chills and epigastric discomfort after pain started 3 in the morning the day of presentation to the hospital patient did have some nausea but no vomiting did not have any diarrhea or constipation and no urinary symptoms of burning frequency or difficulty urination with the symptoms the patient has been evaluated on presentation to the hospital patient did have a temperature of 100 F patient was not tachycardic hypotensive or hypoxic no need for supplemental oxygen he did have white count of 21.85 BUN and creatinine has been mildly elevated lactic acid was elevated liver enzymes are normal patient did have a chest x-ray chronic changes without evidence for acute pulmonary disease also have abdominal bladder ultrasound no solid renal mass or hydronephrosis 8 mm calculus in the left kidney patient blood cultures came back positive with E. coli and bacteroids prompted this consultation patient is currently being treated with the Rocephin Review of Systems Positive point and negatives has been mentioned in the HPI, complete review of systems was performed and all other systems are negative Past Medical History Past Medical History: Hypertension History of Any Multi-Drug Resistant Organisms: None Reported Past Surgical History: Orthopedic Surgery Additional Past Surgical History / Comment(s): Left knee replacement, rt eye surgery Past Anesthesia/Blood Transfusion Reactions: No Reported Reaction Past Psychological History: No Psychological Hx Reported Smoking Status: Former smoker Past Alcohol Use History: Daily Past Drug Use History: None Reported Medications and Allergies Home Medications Medication Instructions Recorded Confirmed Type Losartan [Cozaar] 50 mg PO DAILY 11/06/24 11/06/24 History Allergies Allergy/AdvReac Type Severity Reaction Status Date / Time No Known Allergies Allergy Verified 11/06/24 10:22 Physical Exam Vitals: Vital Signs Temp Pulse Pulse Resp BP BP Pulse Ox 11/06/24 12:57 75 16 115/65 98 11/06/24 08:00 97.9 F 74 16 103/69 95 11/06/24 05:50 78 15 99 11/06/24 05:45 97.5 F L 81 18 123/81 97 11/06/24 03:38 98.3 F 78 16 96/62 95 11/06/24 02:00 98.6 F 11/06/24 01:30 94 18 108/76 97 11/05/24 23:33 92 20 97/63 94 L 11/05/24 20:27 100.0 F H 128 H 18 119/65 96 Intake and Output 11/05/24 11/06/24 11/06/24 22:59 06:59 14:59 Intake Total 218 Balance 218 Intake: Oral 218 Other: Voiding Method Toilet Urinal Weight 90.718 kg 90.718 kg GENERAL DESCRIPTION: Elderly male lying in bed, no distress. No tachypnea or accessory muscle of respiration use. HEENT: Shows Pallor , no scleral icterus. Oral mucous membrane is dry. No pharyngeal erythema or thrush NECK: Trachea central, no thyromegaly. LUNGS: Unlabored breathing. Clear to auscultation anteriorly. No wheeze or crackle. HEART: S1, S2, regular rate and rhythm. No loud murmur ABDOMEN: Soft, no tenderness , guarding or rigidity, no organomegaly EXTREMITIES: No edema of feet. SKIN: No rash, no masses palpable. NEUROLOGICAL: The patient is awake, alert, oriented x3, mood and affect normal. Results CBC & Chem 7: 11/07/24 07:13 11/07/24 07:13 Labs: Abnormal Lab Results - Last 24 Hours (Table) 11/05/24 11/05/24 11/05/24 Range/Units 20:55 20:55 20:55 WBC 11.68 H (4.50-10.00) 10*3/uL RBC 4.34 L (4.40-5.60) 10*6/uL Hct (39.6-50.0) % MCH 33.6 H (27.0-32.0) pg Immature Gran # 0.05 H (0.00-0.04) 10*3/uL Neutrophils # 10.70 H (1.80-7.70) 10*3/uL Lymphocytes # 0.69 L (0.90-5.00) 10*3/uL Monocytes # (0.20-1.00) 10*3/uL Eosinophils # 0.02 L (0.04-0.35) 10*3/uL Sodium 134 L (137-145) mmol/L Carbon Dioxide 15 L (22-30) mmol/L BUN (9-20) mg/dL Creatinine 1.61 H (0.66-1.25) mg/dL Glucose 142 H (74-99) mg/dL Plasma Lactic Acid Mekhi 6.4 H* (0.7-2.0) mmol/L Total Protein (6.3-8.2) g/dL Urine Protein (Negative) Urine Blood (Negative) Urine Bilirubin (Negative) Ur Leukocyte Esterase (Negative) Urine WBC (0-5) /hpf Urine WBC Clumps (None) /hpf Hyaline Casts (0-2) /lpf Urine Mucus (None) /hpf Urine Yeast (Budding) (None) /hpf 11/05/24 11/06/24 11/06/24 Range/Units 23:35 01:35 03:33 WBC 21.85 H (4.50-10.00) 10*3/uL RBC 3.88 L (4.40-5.60) 10*6/uL Hct 37.6 L (39.6-50.0) % MCH 34.5 H (27.0-32.0) pg Immature Gran # 0.25 H (0.00-0.04) 10*3/uL Neutrophils # 18.76 H (1.80-7.70) 10*3/uL Lymphocytes # (0.90-5.00) 10*3/uL Monocytes # 1.33 H (0.20-1.00) 10*3/uL Eosinophils # 0.03 L (0.04-0.35) 10*3/uL Sodium (137-145) mmol/L Carbon Dioxide (22-30) mmol/L BUN (9-20) mg/dL Creatinine (0.66-1.25) mg/dL Glucose (74-99) mg/dL Plasma Lactic Acid Mekhi 2.1 H* (0.7-2.0) mmol/L Total Protein (6.3-8.2) g/dL Urine Protein 1+ H (Negative) Urine Blood Trace H (Negative) Urine Bilirubin 1+ H (Negative) Ur Leukocyte Esterase Moderate H (Negative) Urine WBC 20 H (0-5) /hpf Urine WBC Clumps Rare H (None) /hpf Hyaline Casts 110 H (0-2) /lpf Urine Mucus Occasional H (None) /hpf Urine Yeast (Budding) Rare H (None) /hpf 11/06/24 11/06/24 Range/Units 03:33 03:33 WBC (4.50-10.00) 10*3/uL RBC (4.40-5.60) 10*6/uL Hct (39.6-50.0) % MCH (27.0-32.0) pg Immature Gran # (0.00-0.04) 10*3/uL Neutrophils # (1.80-7.70) 10*3/uL Lymphocytes # (0.90-5.00) 10*3/uL Monocytes # (0.20-1.00) 10*3/uL Eosinophils # (0.04-0.35) 10*3/uL Sodium 131 L (137-145) mmol/L Carbon Dioxide 21 L (22-30) mmol/L BUN 24 H (9-20) mg/dL Creatinine 1.57 H (0.66-1.25) mg/dL Glucose 120 H (74-99) mg/dL Plasma Lactic Acid Mekhi 2.7 H* (0.7-2.0) mmol/L Total Protein 5.9 L (6.3-8.2) g/dL Urine Protein (Negative) Urine Blood (Negative) Urine Bilirubin (Negative) Ur Leukocyte Esterase (Negative) Urine WBC (0-5) /hpf Urine WBC Clumps (None) /hpf Hyaline Casts (0-2) /lpf Urine Mucus (None) /hpf Urine Yeast (Budding) (None) /hpf Microbiology - Last 24 Hours (Table) 11/05/24 22:05 Blood Culture Gram Stain - Preliminary Blood Blood Culture - Preliminary Molecular ID 11/05/24 22:00 Blood Culture Gram Stain - Preliminary Blood Assessment and Plan (1) Bacteremia Current Visit: Yes Status: Acute Code(s): R78.81 - BACTEREMIA SNOMED Code(s): 6017036 (2) Sepsis Current Visit: Yes Status: Acute Code(s): A41.9 - SEPSIS, UNSPECIFIED ORGANISM SNOMED Code(s): 81321286 Plan: 1patient presented hospital with sepsis in this patient who did have fever elevated white count elevated lactic acid source is likely abdominal pain this patient now with evidence of both E. coli and bacteroids bacteremia which usually of gut origin 2patient with elevated creatinine high risk of nephrotoxicity 3we will obtain CT of abdominal pelvis with oral contrast only to better define underlying pathology 4we will treat with Rocephin and Flagyl pending finalization of the culture Question concern were answered We will follow on clinical condition and cultures to further adjust medication if needed Thank you for this consultation we will follow the patient along with you Dictation was produced using [employer] dictation software. please excuse any gramma tical, word or spelling errors. Time with Patient: Greater than 30
--- NOTE | 2024-11-07 10:12 | P.GSCN ---
History of Present Illness Consult date: 11/07/24 Reason for Consult: Renal stone History of present illness: This is an 79-year-old male presented to the hospital with abdominal pain, he is admitted for sepsis, blood cultures growing E. coli and bacteroids. Urology is consulted for CT finding of a 1 mm left-sided renal stone. There is no evidence of hydronephrosis or any other renal abnormalities. He denies any previous history of kidney stones. Denies any flank pain gross hematuria or dysuria. Denies any previous renal surgeries. Review of Systems - Constitutional Reports chills, Reports fever - EENT Ears, nose, mouth and throat: Denies dysphagia - Cardiovascular Denies chest pain, Denies shortness of breath - Respiratory Denies cough, Denies 7 - Gastrointestinal Reports abdominal pain, Denies nausea, Denies vomiting - Genitourinary Denies flank pain, Denies hematuria Past Medical History Past Medical History: Hypertension History of Any Multi-Drug Resistant Organisms: None Reported Past Surgical History: Orthopedic Surgery Additional Past Surgical History / Comment(s): Left knee replacement, rt eye surgery Past Anesthesia/Blood Transfusion Reactions: No Reported Reaction Past Psychological History: No Psychological Hx Reported Smoking Status: Former smoker Past Alcohol Use History: Daily Past Drug Use History: None Reported Medications and Allergies Home Medications Medication Instructions Recorded Confirmed Type Losartan [Cozaar] 50 mg PO DAILY 11/06/24 11/06/24 History Allergies Allergy/AdvReac Type Severity Reaction Status Date / Time No Known Allergies Allergy Verified 11/06/24 10:22 Surgical - Exam Vital Signs Temp Pulse Resp BP Pulse Ox 100.0 F H 128 H 18 119/65 96 11/05/24 20:27 11/05/24 20:27 11/05/24 20:27 11/05/24 20:27 11/05/24 20:27 - General no distress, no pain - Eyes normal ocular movement, no pale - ENT normal nares, normal mucosa - Respiratory normal expansion, normal respiratory effort - Abdomen Abdomen: soft, non tender (Left flank) - Psychiatric oriented to time, oriented to person, oriented to place Results - Labs 11/07/24 07:13 11/07/24 07:13 Abnormal Lab Results - Last 24 Hours (Table) 11/07/24 11/07/24 Range/Units 07:13 07:13 WBC 10.09 H (4.50-10.00) 10*3/uL RBC 3.81 L (4.40-5.60) 10*6/uL Hgb 12.9 L (13.0-17.0) g/dL Hct 37.9 L (39.6-50.0) % MCV 99.5 H (80.0-97.0) fL MCH 33.9 H (27.0-32.0) pg Immature Gran # 0.08 H (0.00-0.04) 10*3/uL Neutrophils # 7.95 H (1.80-7.70) 10*3/uL Lymphocytes # 0.84 L (0.90-5.00) 10*3/uL Eosinophils # 0.39 H (0.04-0.35) 10*3/uL Sodium 131 L (137-145) mmol/L Magnesium 1.5 L (1.6-2.3) mg/dL Microbiology - Last 24 Hours (Table) 11/05/24 22:05 Blood Culture Gram Stain - Preliminary Blood Blood Culture - Preliminary Molecular ID 11/05/24 22:00 Blood Culture Gram Stain - Preliminary Blood Diabetes panel 11/07/24 Range/Units 07:13 Sodium 131 L (137-145) mmol/L Potassium 4.2 (3.5-5.1) mmol/L Chloride 100 (98-107) mmol/L Carbon Dioxide 25 (22-30) mmol/L BUN 17 (9-20) mg/dL Creatinine 0.90 (0.66-1.25) mg/dL Glucose 97 (74-99) mg/dL Calcium 8.5 (8.4-10.2) mg/dL Calcium panel 11/07/24 Range/Units 07:13 Calcium 8.5 (8.4-10.2) mg/dL Pituitary panel 11/07/24 Range/Units 07:13 Sodium 131 L (137-145) mmol/L Potassium 4.2 (3.5-5.1) mmol/L Chloride 100 (98-107) mmol/L Carbon Dioxide 25 (22-30) mmol/L BUN 17 (9-20) mg/dL Creatinine 0.90 (0.66-1.25) mg/dL Glucose 97 (74-99) mg/dL Calcium 8.5 (8.4-10.2) mg/dL Adrenal panel 11/07/24 Range/Units 07:13 Sodium 131 L (137-145) mmol/L Potassium 4.2 (3.5-5.1) mmol/L Chloride 100 (98-107) mmol/L Carbon Dioxide 25 (22-30) mmol/L BUN 17 (9-20) mg/dL Creatinine 0.90 (0.66-1.25) mg/dL Glucose 97 (74-99) mg/dL Calcium 8.5 (8.4-10.2) mg/dL Assessment and Plan Assessment: [id number]-year-old male with history of a 1 mm left-sided renal stone, stone is nonobstructive not causing any hydronephrosis and he is asymptomatic. This is a fairly small stone no further intervention is needed from urology standpoint.
[2024-11-07] MEDS: MAGNESIUM SULFATE-D5W PMX 1 GM in DEXTROSE/WATER 1 100ML.BAG IVPB SCH (10:35)
--- NOTE | 2024-11-07 10:52 | P.PN ---
Subjective Patient is seen in follow-up for acute kidney injury. Renal function improved. Has been avoiding. Receiving IV fluids. Tolerating oral intake. Vital signs are stable. General: No acute distress. HEENT: Head exam is unremarkable. LUNGS: No audible rhonchi or wheezes. HEART: Rate and Rhythm are regular. ABDOMEN: Nontender. Soft. EXTREMITITES: No edema. Objective - Vital Signs Vital signs: Vital Signs Temp 98.5 F 11/07/24 08:30 Pulse 83 11/07/24 08:30 Resp 17 11/07/24 08:30 BP 120/72 11/07/24 08:30 Pulse Ox 94 L 11/07/24 08:30 FiO2 Intake & Output 11/06/24 11/07/24 11/07/24 18:59 06:59 18:59 Intake Total 318 240 Balance 318 240 Intake: Oral 318 240 Other: Voiding Method Toilet Toilet Urinal Urinal # Voids 2 2 - Labs CBC & Chem 7: 11/07/24 07:13 11/07/24 07:13 Labs: Abnormal Lab Results - Last 24 Hours (Table) 11/07/24 11/07/24 Range/Units 07:13 07:13 WBC 10.09 H (4.50-10.00) 10*3/uL RBC 3.81 L (4.40-5.60) 10*6/uL Hgb 12.9 L (13.0-17.0) g/dL Hct 37.9 L (39.6-50.0) % MCV 99.5 H (80.0-97.0) fL MCH 33.9 H (27.0-32.0) pg Immature Gran # 0.08 H (0.00-0.04) 10*3/uL Neutrophils # 7.95 H (1.80-7.70) 10*3/uL Lymphocytes # 0.84 L (0.90-5.00) 10*3/uL Eosinophils # 0.39 H (0.04-0.35) 10*3/uL Sodium 131 L (137-145) mmol/L Magnesium 1.5 L (1.6-2.3) mg/dL Microbiology - Last 24 Hours (Table) 11/05/24 22:05 Blood Culture Gram Stain - Preliminary Blood Blood Culture - Preliminary Molecular ID 11/05/24 22:00 Blood Culture Gram Stain - Preliminary Blood Assessment and Plan Plan: Assessment: 1. Acute kidney injury secondary to ATN secondary to severe sepsis. Creatinine 1.6 on admission and is 0.9 today. No hydronephrosis noted on CT. 2. Severe sepsis with abdominal pain. Consider CT scan and surgery eval. Defer to primary team. 3. Metabolic acidosis secondary to lactic acidosis. Improved. 4. Hyponatremia secondary to acute kidney injury, poor solute intake. Also receiving meds with D5W. 5. Hypomagnesemia from poor intake. Plan: Hep-Lock IV fluids. Encourage oral intake. Magnesium being replaced. Follow-up cultures. Avoid nephrotoxins. Continue to monitor renal function and urine output Hold Cozaar for systolic blood pressure less than 120.
--- NOTE | 2024-11-07 15:00 | P.PN ---
Subjective Progress Note Date: 11/07/24 Principal diagnosis: Reason for follow-up is bacteremia Patient is a 79-year-old male with a past medical history significant for hypertension presenting to the hospital for evaluation of shaking chills and epigastric discomfort patient did have positive blood culture prompting this consultation he did have a CT of abdominal pelvis with concerning for duodenal diverticulitis but no abscess. On today's evaluation that is 11/07/2024, Patient is afebrile patient is cu rrently on room air and denies having any shortness of breath, the patient denies any chest pain or cough, the patient denies any nausea vomiting did not have any abdominal pain and no diarrhea. Patient white count is down to 10.09, creatinine 0.90 blood culture with E. coli and bacteroids Objective - Vital Signs Vital signs: Vital Signs Temp 98.5 F 11/07/24 08:30 Pulse 83 11/07/24 08:30 Resp 17 11/07/24 08:30 BP 120/72 11/07/24 08:30 Pulse Ox 94 L 11/07/24 08:30 FiO2 Intake & Output 11/06/24 11/07/24 11/07/24 18:59 06:59 18:59 Intake Total 318 480 Balance 318 480 Intake: Oral 318 480 Other: Voiding Method Toilet Toilet Urinal Urinal # Voids 2 2 - Exam GENERAL DESCRIPTION: An elderly male lying in bed in no distress RESPIRATORY SYSTEM: Unlabored breathing , decreased breath sounds at bases HEART: S1 S2 regular rate and rhythm , ABDOMEN: Soft , no tenderness EXTREMITIES: No edema feet - Labs CBC & Chem 7: 11/07/24 07:13 11/07/24 07:13 Labs: Abnormal Lab Results - Last 24 Hours (Table) 11/07/24 11/07/24 Range/Units 07:13 07:13 WBC 10.09 H (4.50-10.00) 10*3/uL RBC 3.81 L (4.40-5.60) 10*6/uL Hgb 12.9 L (13.0-17.0) g/dL Hct 37.9 L (39.6-50.0) % MCV 99.5 H (80.0-97.0) fL MCH 33.9 H (27.0-32.0) pg Immature Gran # 0.08 H (0.00-0.04) 10*3/uL Neutrophils # 7.95 H (1.80-7.70) 10*3/uL Lymphocytes # 0.84 L (0.90-5.00) 10*3/uL Eosinophils # 0.39 H (0.04-0.35) 10*3/uL Sodium 131 L (137-145) mmol/L Magnesium 1.5 L (1.6-2.3) mg/dL Microbiology - Last 24 Hours (Table) 11/05/24 22:00 Blood Culture Gram Stain - Preliminary Blood Blood Culture - Preliminary Escherichia coli 11/05/24 22:05 Blood Culture Gram Stain - Preliminary Blood Blood Culture - Preliminary Escherichia coli Molecular ID Assessment and Plan (1) Bacteremia Current Visit: Yes Status: Acute Code(s): R78.81 - BACTEREMIA SNOMED Code(s): 5031625 (2) Sepsis Current Visit: Yes Status: Acute Code(s): A41.9 - SEPSIS, UNSPECIFIED ORGANISM SNOMED Code(s): 14447696 Plan: 1patient presented hospital with sepsis in this patient who did have fever elevated white count elevated lactic acid source is likely abdominal pain this patient now with evidence of both E. coli and bacteroids bacteremia which usually of gut origin 2patient CT of abdominal pelvis with oral contrast did shows evidence of duodenal diverticulitis but no abscess 3patient did have resolution of his fever white count is down we will continue with Rocephin and Flagyl pending finalization of the culture Question concern were answered Dictation was produced using [employer] dictation software. please excuse any grammatical, word or spelling errors. Time with Patient: Less than 30
[2024-11-07 17:17] LABS: Glucose,Whole Blood 111 mg/dL (70-110)
[2024-11-07] MEDS: ACETAMINOPHEN TAB 325 MG TAB PO PRN (17:20)
[2024-11-07] MEDS: traMADol 50 MG TAB PO PRN (18:24)
--- NOTE | 2024-11-07 21:45 | P.PN ---
Subjective Progress Note Date: 11/07/24 Patient is an 79-year-old man with hypertension who presents with epigastric pain and shaking. Patient states his symptoms began 2 nights ago at 3 AM when he began to shake intensely and have some epigastric abdominal pain which lasted for about 3 hours. He later was able to get back to sleep and later on in the day his symptoms reoccurred. He endorses associated nausea. He states he has no change in bowel movements or urination. He is denying vomiting, constipation, diarrhea, dysuria. He is denying any chest pain or shortness of breath. Spoke with the ER physician, patient admission was accepted by internal medicine service for treatment. 11/07/2024 Patient is lying in the bed. Awake alert and oriented x 3. No complaints of chest pain or shortness of breath no complaints of abdominal pain. Patient has been afebrile. Blood cultures growing E. coli. Repeat blood culture ordered. Patient has been current on antibiotics in the form of ceftriaxone and Flagyl. CT of abdomen pelvis showed a moderately sized duodenal diverticulum with wall thickening and trace adjacent mesenteric free fluid possibly reflecting mild acute diverticulitis of the duodenum. No evidence of a drainable fluid collection/abscess. Extensive colonic diverticulosis without convincing CT evidence of acute diverticulitis. PHYSICAL EXAMINATION: Vitals reviewed GENERAL: Resting comfortably in bed. EYES: PERRL, no scleral injection or icterus. No vision loss HENT: Normocephalic, atraumatic, hearing grossly intact, moist mucous membranes NECK: No tracheal deviation, full range of motion. CARDIOVASCULAR: S1 and S2 present. No murmurs, rubs, or gallops. PULMONARY: Chest is clear to auscultation, no wheezing, rhonchi, or crackles. ABDOMEN: Soft, nontender, nondistended. No palpable organomegaly. MUSCULOSKELETAL: No apparent joint swelling and deformities. EXTREMITIES: No apparent cyanosis, clubbing. No pedal edema. NEUROLOGICAL: Alert and oriented. Gross neurological examination with no appar ent focal deficits. SKIN: No apparent rashes. ER FINDINGS: Labs significant for WBC 11.6 => 21.8, sodium 134 => 131, bicarb 15 => 21, BUN 28 => 24, creatinine 1.6 => 1.5, glucose 142 => 120, lactic acid 6.4 => 2.7 => 1.8, UA with findings of moderate leukocyte esterase, 20 WBC, hyaline casts 110, respiratory panel negative. EKG independently interpreted showed sinus tachycardia heart rate of 111, QTc 365, no ST segment elevation or depression seen, no T-wave inversions seen. Chest x-ray done independently interpreted showed Chronic changes without evidence for acute pulmonary disease. KUB independently interpreted as No acute fracture or subluxation. No signs of obstruction. Assessment and Plan: In summary, Patient is an 79-year-old man who presents to have evaluation of epigastric discomfort and chills. # Acute duodenal diverticulitis #Severe sepsis # E. coli bacteremia Heart rate 128, WBC 21.8 Given 2 L fluid resuscitation Patient will be continued on ceftriaxone 2 g daily along with Flagyl. Follow-up repeat blood cultures. Monitor CBC #YARI possibly ATN, nonoliguric, secondary to sepsis #Urinary retention Patient straight cath once during admission Bladder scan, renal ultrasound showed no hydronephrosis. Maintain normal saline Renal function is back to baseline. Nephrology is on board. Chronic Medical Conditions #Hypertension Resume home medications DVT ppx: Subq Lovenox 40 meq daily Code status: Full code E: Replete as needed N: Regular diet A: Ambulatory Anticipated discharge place: Pending clinical course Anticipated discharge time: Pending clinical course Objective - Vital Signs Vital signs: Vital Signs Temp 98.5 F 11/07/24 08:30 Pulse 83 11/07/24 08:30 Resp 17 11/07/24 08:30 BP 120/72 11/07/24 08:30 Pulse Ox 94 L 11/07/24 08:30 FiO2 Intake & Output 11/06/24 11/07/24 11/07/24 18:59 06:59 18:59 Intake Total 318 240 Balance 318 240 Intake: Oral 318 240 Other: Voiding Method Toilet Toilet Urinal Urinal # Voids 2 2 - Labs CBC & Chem 7: 11/07/24 07:13 11/07/24 07:13 Labs: Abnormal Lab Results - Last 24 Hours (Table) 11/07/24 11/07/24 Range/Units 07:13 07:13 WBC 10.09 H (4.50-10.00) 10*3/uL RBC 3.81 L (4.40-5.60) 10*6/uL Hgb 12.9 L (13.0-17.0) g/dL Hct 37.9 L (39.6-50.0) % MCV 99.5 H (80.0-97.0) fL MCH 33.9 H (27.0-32.0) pg Immature Gran # 0.08 H (0.00-0.04) 10*3/uL Neutrophils # 7.95 H (1.80-7.70) 10*3/uL Lymphocytes # 0.84 L (0.90-5.00) 10*3/uL Eosinophils # 0.39 H (0.04-0.35) 10*3/uL Sodium 131 L (137-145) mmol/L Magnesium 1.5 L (1.6-2.3) mg/dL Microbiology - Last 24 Hours (Table) 11/05/24 22:05 Blood Culture Gram Stain - Preliminary Blood Blood Culture - Preliminary Molecular ID 11/05/24 22:00 Blood Culture Gram Stain - Preliminary Blood
[2024-11-08 07:14] LABS: African American GFR (CKD) >90 (>60 ml/min/1.73 sqM); Anion Gap 5 mmol/L; Blood Urea Nitrogen 12 mg/dL (9-20); Calcium 8.2 mg/dL (8.4-10.2); Carbon Dioxide 26 mmol/L (22-30); Chloride 102 mmol/L (98-107); Glucose 109 mg/dL (74-99); Magnesium 1.9 mg/dL (1.6-2.3); Non-African American GFR(CKD) 84 (>60 ml/min/1.73 sqM); Sodium 133 mmol/L (137-145)
[2024-11-08 07:22] LABS: Basophils # (A) 0.03 10*3/uL (0.00-0.10); Basophils % (A) 0.4 %; Eosinophils # (A) 0.33 10*3/uL (0.04-0.35); HCT 37.7 % (39.6-50.0); HGB 12.8 g/dL (13.0-17.0); Lymphocytes # (A) 0.91 10*3/uL (0.90-5.00); Lymphocytes % (A) 10.9 %; MCH 33.4 pg (27.0-32.0); MCV 98.4 fL (80.0-97.0); Monocytes # (A) 0.77 10*3/uL (0.20-1.00); Monocytes % (A) 9.2 %; Neutrophils # (A) 6.26 10*3/uL (1.80-7.70); Platelet Count 183 10*3/uL (140-440); RBC 3.83 10*6/uL (4.40-5.60); RDW 12.4 % (11.5-14.5); WBC 8.34 10*3/uL (4.50-10.00)
--- NOTE | 2024-11-08 10:24 | P.PN ---
Subjective Patient is seen in follow-up for acute kidney injury. Renal function improved. Has been voiding. Off IV fluids. Tolerating oral intake. Vital signs are stable. General: No acute distress. HEENT: Head exam is unremarkable. LUNGS: No audible rhonchi or wheezes. HEART: Rate and Rhythm are regular. ABDOMEN: Nontender. Soft. EXTREMITITES: No edema. Objective - Vital Signs Vital signs: Vital Signs Temp 97.9 F 11/08/24 08:00 Pulse 80 11/08/24 08:00 Resp 18 11/08/24 08:00 BP 145/89 11/08/24 08:00 Pulse Ox 98 11/08/24 08:00 FiO2 Intake & Output 11/07/24 11/08/24 11/08/24 18:59 06:59 18:59 Intake Total 1210 658 Balance 1210 658 Weight 96.2 kg Intake: Intake, IV Titration 250 Amount Magnesium Sulfate-D5w Pmx 100 1 gm In Dextrose/Water 1 100ml.bag @ 100 mls/hr IVPB Q1H [facility] Rx#: [id number] cefTRIAXone 2 gm In 50 Dextrose 5% in Water 50 ml @ 100 mls/hr IVPB Q24H [facility] Rx#:[id number] metroNIDAZOLE-NS PMX 500 100 mg In Saline 1 100ml.bag @ 100 mls/hr IVPB Q8HR [facility] Rx#:[id number] Oral 960 658 Other: Voiding Method Toilet Toilet Toilet Urinal Urinal Urinal # Voids 4 2 1 - Labs CBC & Chem 7: 11/08/24 06:40 11/08/24 06:40 Labs: Abnormal Lab Results - Last 24 Hours (Table) 11/07/24 11/08/24 11/08/24 Range/Units 17:16 06:40 06:40 RBC 3.83 L (4.40-5.60) 10*6/uL Hgb 12.8 L (13.0-17.0) g/dL Hct 37.7 L (39.6-50.0) % MCV 98.4 H (80.0-97.0) fL MCH 33.4 H (27.0-32.0) pg Sodium 133 L (137-145) mmol/L Glucose 109 H (74-99) mg/dL POC Glucose (mg/dL) 111 H (70-110) mg/dL Calcium 8.2 L (8.4-10.2) mg/dL Microbiology - Last 24 Hours (Table) 11/05/24 22:00 Blood Culture Gram Stain - Preliminary Blood Blood Culture - Preliminary Escherichia coli 11/05/24 22:05 Blood Culture Gram Stain - Preliminary Blood Blood Culture - Preliminary Escherichia coli Molecular ID Assessment and Plan Plan: Assessment: 1. Acute kidney injury secondary to ATN secondary to severe sepsis. Resolved. Creatinine 1.6 on admission and is 0.8 today. No hydronephrosis noted on CT. 2. Severe sepsis with abdominal pain. Improved. 3. Metabolic acidosis secondary to lactic acidosis. Improved. 4. Hyponatremia secondary to acute kidney injury, poor solute intake. Was also receiving meds with D5W. better. 5. Hypomagnesemia from poor intake. Replaced. Better. 6. E. coli UTI and bacteremia on antibiotics. Plan: Remains off IV fluids. Encouraged oral intake. Avoid nephrotoxins. Continue to monitor renal function and urine output Hold Cozaar for systolic blood pressure less than 120.
--- NOTE | 2024-11-08 15:13 | P.PN ---
Subjective Progress Note Date: 11/08/24 Patient is an 79-year-old man with hypertension who presents with epigastric pain and shaking. Patient states his symptoms began 2 nights ago at 3 AM when he began to shake intensely and have some epigastric abdominal pain which lasted for about 3 hours. He later was able to get back to sleep and later on in the day his symptoms reoccurred. He endorses associated nausea. He states he has no change in bowel movements or urination. He is denying vomiting, constipation, diarrhea, dysuria. He is denying any chest pain or shortness of breath. 11/07/2024 Patient is lying in the bed. Awake alert and oriented x 3. No complaints of chest pain or shortness of breath no complaints of abdominal pain. Patient has been afebrile. Blood cultures growing E. coli. Repeat blood culture ordered. Patient has been current on antibiotics in the form of ceftriaxone and Flagyl. CT of abdomen pelvis showed a moderately sized duodenal diverticulum with wall thickening and trace adjacent mesenteric free fluid possibly reflecting mild acute diverticulitis of the duodenum. No evidence of a drainable fluid collection/abscess. Extensive colonic diverticulosis without convincing CT evidence of acute diverticulitis. 11/08/2024 Patient seen and examined at bedside. He has abdominal pain at this time. Afe brile. He continues on ceftriaxone and Flagyl. No evidence of drainable fluid collection or abscess. Blood cultures on positive for Bacteroides fragilis and E. coli. Will follow-up repeat cultures. PHYSICAL EXAMINATION: Vitals reviewed GENERAL: Resting comfortably in bed. EYES: PERRL, no scleral injection or icterus. No vision loss HENT: Normocephalic, atraumatic, hearing grossly intact, moist mucous membranes NECK: No tracheal deviation, full range of motion. CARDIOVASCULAR: S1 and S2 present. No murmurs, rubs, or gallops. PULMONARY: Chest is clear to auscultation, no wheezing, rhonchi, or crackles. ABDOMEN: Soft, nontender, nondistended. No palpable organomegaly. MUSCULOSKELETAL: No apparent joint swelling and deformities. EXTREMITIES: No apparent cyanosis, clubbing. No pedal edema. NEUROLOGICAL: Alert and oriented. Gross neurological examination with no apparent focal deficits. SKIN: No apparent rashes. Today's objective findings: Labs WBC 8.3, hemoglobin 12.8, sodium 133, magnesium 1.9 No new imaging Assessment and Plan: In summary, Patient is an 79-year-old man who presents to have evaluation of epigastric discomfort and chills. # Acute duodenal diverticulitis # Severe sepsis # E. coli bacteremia Patient will be continued on ceftriaxone 2 g daily along with Flagyl. Follow-up repeat blood cultures. Monitor CBC #YARI possibly ATN, nonoliguric, secondary to sepsis #Urinary retention Patient straight cath once during admission Bladder scan, renal ultrasound showed no hydronephrosis. Maintain normal saline Renal function is back to baseline. Nephrology is on board. Chronic Medical Conditions #Hypertension Resume home medications DVT ppx: Subq Lovenox 40 meq daily Code status: Full code E: Replete as needed N: Regular diet A: Ambulatory Anticipated discharge place: Pending clinical course Anticipated discharge time: Pending clinical course Dr. Barros seen patient with resident, present during exam, and agreed with findings. Objective - Vital Signs Vital signs: Vital Signs Temp 98.3 F 11/08/24 04:08 Pulse 72 11/08/24 04:08 Resp 17 11/08/24 04:08 BP 137/78 11/08/24 04:08 Pulse Ox 93 L 11/08/24 04:08 FiO2 Intake & Output 11/07/24 11/08/24 11/08/24 18:59 06:59 18:59 Intake Total 1210 Balance 1210 Weight 96.2 kg Intake: Intake, IV Titration 250 Amount Magnesium Sulfate-D5w Pmx 100 1 gm In Dextrose/Water 1 100ml.bag @ 100 mls/hr IVPB Q1H [facility] Rx#: [id number] cefTRIAXone 2 gm In 50 Dextrose 5% in Water 50 ml @ 100 mls/hr IVPB Q24H [facility] Rx#:[id number] metroNIDAZOLE-NS PMX 500 100 mg In Saline 1 100ml.bag @ 100 mls/hr IVPB Q8HR [facility] Rx#:[id number] Oral 960 Other: Voiding Method Toilet Toilet Urinal Urinal # Voids 4 2 - Labs CBC & Chem 7: 11/08/24 06:40 11/08/24 06:40 Labs: Abnormal Lab Results - Last 24 Hours (Table) 11/07/24 11/08/24 11/08/24 Range/Units 17:16 06:40 06:40 RBC 3.83 L (4.40-5.60) 10*6/uL Hgb 12.8 L (13.0-17.0) g/dL Hct 37.7 L (39.6-50.0) % MCV 98.4 H (80.0-97.0) fL MCH 33.4 H (27.0-32.0) pg Sodium 133 L (137-145) mmol/L Glucose 109 H (74-99) mg/dL POC Glucose (mg/dL) 111 H (70-110) mg/dL Calcium 8.2 L (8.4-10.2) mg/dL Microbiology - Last 24 Hours (Table) 11/05/24 22:00 Blood Culture Gram Stain - Preliminary Blood Blood Culture - Preliminary Escherichia coli 11/05/24 22:05 Blood Culture Gram Stain - Preliminary Blood Blood Culture - Preliminary Escherichia coli Molecular ID
[2024-11-09 08:14] LABS: HCT 39.3 % (39.6-50.0); HGB 13.5 g/dL (13.0-17.0); MCH 33.5 pg (27.0-32.0); MCHC 34.4 g/dL (32.0-37.0); MCV 97.5 fL (80.0-97.0); Mean Platelet Volume 10.7 fL (9.5-12.2); Platelet Count 213 10*3/uL (140-440); RBC 4.03 10*6/uL (4.40-5.60); RDW 12.2 % (11.5-14.5); WBC 8.51 10*3/uL (4.50-10.00)
[2024-11-09 08:16] VITALS: RESP 14
[2024-11-09 08:33] LABS: African American GFR (CKD) >90 (>60 ml/min/1.73 sqM); Anion Gap 11 mmol/L; Blood Urea Nitrogen 9 mg/dL (9-20); Calcium 8.5 mg/dL (8.4-10.2); Carbon Dioxide 25 mmol/L (22-30); Chloride 101 mmol/L (98-107); Glucose 123 mg/dL (74-99); Non-African American GFR(CKD) 87 (>60 ml/min/1.73 sqM); Potassium 3.6 mmol/L (3.5-5.1); Sodium 137 mmol/L (137-145)
--- NOTE | 2024-11-09 10:48 | P.PN ---
Subjective Patient is seen in follow-up for acute kidney injury. Renal function improved. Has been voiding. Off IV fluids. Tolerating oral intake. No active complaints. Vital signs are stable. General: No acute distress. HEENT: Head exam is unremarkable. LUNGS: No audible rhonchi or wheezes. HEART: Rate and Rhythm are regular. ABDOMEN: Nontender. Soft. EXTREMITITES: No edema. Objective - Vital Signs Vital signs: Vital Signs Temp 98 F 11/09/24 08:15 Pulse 88 11/09/24 08:15 Resp 14 11/09/24 08:15 BP 149/83 11/09/24 08:15 Pulse Ox 97 11/09/24 08:15 FiO2 Intake & Output 11/08/24 11/09/24 11/09/24 18:59 06:59 18:59 Intake Total 1198 118 Balance 1198 118 Weight 96.5 kg Intake: Oral 1198 118 Other: Voiding Method Toilet Toilet Toilet # Voids 2 2 - Labs CBC & Chem 7: 11/09/24 07:40 11/09/24 07:40 Labs: Abnormal Lab Results - Last 24 Hours (Table) 11/09/24 11/09/24 Range/Units 07:40 07:40 RBC 4.03 L (4.40-5.60) 10*6/uL Hct 39.3 L (39.6-50.0) % MCV 97.5 H (80.0-97.0) fL MCH 33.5 H (27.0-32.0) pg Glucose 123 H (74-99) mg/dL Microbiology - Last 24 Hours (Table) 11/07/24 18:10 Blood Culture - Preliminary Blood 11/05/24 22:00 Blood Culture Gram Stain - Final Blood Blood Culture - Final Escherichia coli Bacteroides fragilis Group 11/05/24 22:05 Blood Culture Gram Stain - Final Blood Blood Culture - Final Escherichia coli Bacteroides fragilis Group Molecular ID Assessment and Plan Plan: Assessment: 1. Acute kidney injury secondary to ATN secondary to severe sepsis. Resolved. Creatinine 1.6 on admission and is 0.74 today. No hydronephrosis noted on CT. 2. Severe sepsis with abdominal pain. Improved. 3. Metabolic acidosis secondary to lactic acidosis. Improved. 4. Hyponatremia secondary to acute kidney injury, poor solute intake. Was also receiving meds with D5W. Better. 5. Hypomagnesemia from poor intake. Replaced. Better. 6. E. coli and bacteroids UTI and bacteremia on antibiotics. Plan: Remains off IV fluids. Encouraged oral intake. Avoid nephrotoxins. Continue to monitor renal function and urine output I will sign off. Please call with any questions or concerns.
[2024-11-09 11:20] VITALS: BP 154/88; PULSE 83; TEMP 98.2
--- NOTE | 2024-11-09 12:52 | P.DS ---
Providers Date of admission: 11/06/24 02:37 Expected date of discharge: 11/09/24 Attending physician: Christy Murphy Consults: 11/06/24 02:33 Consult Physician Urgent Consulting Provider: Edvin Rod Consult Reason/Comments: YARI Do you want consulting provider notified?: Yes, Notify in am 11/06/24 12:46 Consult Physician Routine Consulting Provider: Jimmy Hanks Consult Reason/Comments: nephrolithiasis Do you want consulting provider notified?: Yes 11/06/24 14:16 Consult Physician Routine Consulting Provider: Grisel Balderas Consult Reason/Comments: Bacteremia Do you want consulting provider notified?: Yes Primary care physician: Manan Arizmendi [facility] Hospital Course: Discharge diagnoses; # Acute duodenal diverticulitis # Severe sepsis # E. coli bacteremia #YARI possibly ATN, nonoliguric, secondary to sepsis #Urinary retention #Hypertension Hospital course; Patient is an 79-year-old man with hypertension who presents with epigastric pain and shaking. Patient states his symptoms began 2 nights ago at 3 AM when he began to shake intensely and have some epigastric abdominal pain which lasted for about 3 hours. He later was able to get back to sleep and later on in the day his symptoms reoccurred. He endorses associated nausea. He states he has no change in bowel movements or urination. He is denying vomiting, constipation, diarrhea, dysuria. He is denying any chest pain or shortness of breath. During hospital patient seen and treated for bacteremia with findings of E. coli and Bacteroides fragilis. He was seen by infectious disease and nephrology. Patient discharged to home in stable condition. He will need to continue oral antibiotics for the next 10 days as directed. He will need follow-up with his PCP. Return to emergency room if symptoms worsening. PHYSICAL EXAMINATION: Vitals reviewed GENERAL: Resting comfortably in bed. CARDIOVASCULAR: S1 and S2 present. No murmurs, rubs, or gallops. PULMONARY: Chest is clear to auscultation, no wheezing, rhonchi, or crackles. ABDOMEN: Soft, nontender, nondistended. No palpable organomegaly. MUSCULOSKELETAL: No apparent joint swelling and deformities. EXTREMITIES: No apparent cyanosis, clubbing. No pedal edema. NEUROLOGICAL: Alert and oriented. Gross neurological examination with no apparent focal deficits. SKIN: No apparent rashes. Dr. Barros seen patient with resident, present during exam, and agreed with findings. Dictation was produced using [employer] dictation software. please excuse any grammatical, word or spelling errors. Patient Condition at Discharge: Stable Plan - Discharge Summary Discharge Rx Participant: No New Discharge Prescriptions: New cefuroxime axetiL [Ceftin] 500 mg PO BID #20 tab metroNIDAZOLE [Flagyl] 500 mg PO TID #30 tab Continue Losartan [Cozaar] 50 mg PO DAILY Discharge Medication List Losartan [Cozaar] 50 mg PO DAILY 11/06/24 [History] cefuroxime axetiL [Ceftin] 500 mg PO BID #20 tab 11/09/24 [Rx] metroNIDAZOLE [Flagyl] 500 mg PO TID #30 tab 11/09/24 [Rx] Follow up Appointment(s)/Referral(s): Manan Arizmendi DO [Primary Care Provider] - 1-2 days Activity/Diet/Wound Care/Special Instructions: Continue antibiotics for the next 10 days as prescribed. Follow-up with PCP. Discharge Disposition: HOME SELF-CARE
--- NOTE | 2024-11-09 14:04 | P.PN ---
Subjective Progress Note Date: 11/08/24 Principal diagnosis: Reason for follow-up is bacteremia Patient is a 79-year-old male with a past medical history significant for hypertension presenting to the hospital for evaluation of shaking chills and epigastric discomfort patient did have positive blood culture prompting this consultation he did have a CT of abdominal pelvis with concerning for duodenal diverticulitis but no abscess. On today's evaluation that is 11/08/2024, patient has been afebrile, patient is breathing comfortably and is currently on room air, patient has developed diarrhea but no abdominal pain no vomiting with the change reported by the at the bedside. Next the patient white count normalized to 8.34 creatinine 0.81 Objective - Vital Signs Vital signs: Vital Signs Temp 97.9 F 11/08/24 08:00 Pulse 73 11/08/24 11:47 Resp 16 11/08/24 11:47 BP 128/83 11/08/24 11:47 Pulse Ox 94 L 11/08/24 11:47 FiO2 Intake & Output 11/07/24 11/08/24 11/08/24 18:59 06:59 18:59 Intake Total 1210 658 Balance 1210 658 Weight 96.2 kg Intake: Intake, IV Titration 250 Amount Magnesium Sulfate-D5w Pmx 100 1 gm In Dextrose/Water 1 100ml.bag @ 100 mls/hr IVPB Q1H [facility] Rx#: [id number] cefTRIAXone 2 gm In 50 Dextrose 5% in Water 50 ml @ 100 mls/hr IVPB Q24H [facility] Rx#:[id number] metroNIDAZOLE-NS PMX 500 100 mg In Saline 1 100ml.bag @ 100 mls/hr IVPB Q8HR [facility] Rx#:[id number] Oral 960 658 Other: Voiding Method Toilet Toilet Toilet Urinal Urinal Urinal # Voids 4 2 1 - Labs CBC & Chem 7: 11/09/24 07:40 11/09/24 07:40 Labs: Abnormal Lab Results - Last 24 Hours (Table) 11/07/24 11/08/24 11/08/24 Range/Units 17:16 06:40 06:40 RBC 3.83 L (4.40-5.60) 10*6/uL Hgb 12.8 L (13.0-17.0) g/dL Hct 37.7 L (39.6-50.0) % MCV 98.4 H (80.0-97.0) fL MCH 33.4 H (27.0-32.0) pg Sodium 133 L (137-145) mmol/L Glucose 109 H (74-99) mg/dL POC Glucose (mg/dL) 111 H (70-110) mg/dL Calcium 8.2 L (8.4-10.2) mg/dL Microbiology - Last 24 Hours (Table) 11/05/24 22:00 Blood Culture Gram Stain - Preliminary Blood Blood Culture - Preliminary Escherichia coli 11/05/24 22:05 Blood Culture Gram Stain - Preliminary Blood Blood Culture - Preliminary Escherichia coli Molecular ID Assessment and Plan (1) Bacteremia Status: Acute Code(s): R78.81 - BACTEREMIA SNOMED Code(s): 9579236 (2) Sepsis Status: Acute Code(s): A41.9 - SEPSIS, UNSPECIFIED ORGANISM SNOMED Code(s): 02465828 Plan: 1patient presented hospital with sepsis in this patient who did have fever elevated white count elevated lactic acid source is likely abdominal pain this patient now with evidence of both E. coli and bacteroids bacteremia which usually of gut origin 2patient CT of abdominal pelvis with oral contrast did shows evidence of duodenal diverticulitis but no abscess 3patient did have resolution of his fever white count has normalized has developed diarrhea advised to increase his yogurt intake will continue with Rocephin and Flagyl and monitor clinical course closely discussed with the resident physician Dictation was produced using [employer] dictation software. please excuse any grammatical, word or spelling errors. Time with Patient: Less than 30
--- NOTE | 2024-11-09 14:05 | P.PN ---
Subjective Progress Note Date: 11/09/24 Principal diagnosis: Reason for follow-up is bacteremia Patient is a 79-year-old male with a past medical history significant for hypertension presenting to the hospital for evaluation of shaking chills and epigastric discomfort patient did have positive blood culture prompting this consultation he did have a CT of abdominal pelvis with concerning for duodenal diverticulitis but no abscess. On today's evaluation that is 11/09/2024, Patient is afebrile this morning patient denies having any chest pain shortness of breath or cough, the patient is currently on room air, patient denies any abdominal pain no nausea vomiting still having diarrhea but no blood or mucus in the stool. The patient white count is 8.51, creatinine 0.74 Objective - Vital Signs Vital signs: Vital Signs Temp 98.2 F 11/09/24 11:18 Pulse 83 11/09/24 11:18 Resp 14 11/09/24 11:18 BP 154/88 11/09/24 11:18 Pulse Ox 97 11/09/24 11:18 FiO2 Intake & Output 11/08/24 11/09/24 11/09/24 18:59 06:59 18:59 Intake Total 1198 118 Balance 1198 118 Weight 96.5 kg Intake: Oral 1198 118 Other: Voiding Method Toilet Toilet Toilet # Voids 2 2 - Exam GENERAL DESCRIPTION: An elderly male lying in bed in no distress RESPIRATORY SYSTEM: Unlabored breathing , decreased breath sounds at bases HEART: S1 S2 regular rate and rhythm , ABDOMEN: Soft , no tenderness EXTREMITIES: No edema feet - Labs CBC & Chem 7: 11/09/24 07:40 11/09/24 07:40 Labs: Abnormal Lab Results - Last 24 Hours (Table) 11/09/24 11/09/24 Range/Units 07:40 07:40 RBC 4.03 L (4.40-5.60) 10*6/uL Hct 39.3 L (39.6-50.0) % MCV 97.5 H (80.0-97.0) fL MCH 33.5 H (27.0-32.0) pg Glucose 123 H (74-99) mg/dL Microbiology - Last 24 Hours (Table) 11/07/24 18:10 Blood Culture - Preliminary Blood 11/05/24 22:00 Blood Culture Gram Stain - Final Blood Blood Culture - Final Escherichia coli Bacteroides fragilis Group 11/05/24 22:05 Blood Culture Gram Stain - Final Blood Blood Culture - Final Escherichia coli Bacteroides fragilis Group Molecular ID Assessment and Plan (1) Bacteremia Status: Acute Code(s): R78.81 - BACTEREMIA SNOMED Code(s): 2461798 (2) Sepsis Status: Acute Code(s): A41.9 - SEPSIS, UNSPECIFIED ORGANISM SNOMED Code(s): 74012497 Plan: 1patient presented hospital with sepsis in this patient who did have fever elevated white count elevated lactic acid source is likely abdominal pain this patient now with evidence of both E. coli and bacteroids bacteremia which usually of gut origin 2patient CT of abdominal pelvis with oral contrast did shows evidence of duodenal diverticulitis but no abscess 3patient did have resolution of his fever white count has normalized 4patient will be able to finish therapy with oral Ceftin and Flagyl x 10 days advised to increase his yogurt intake and close the patient follow-up care discussed with resident physician Dictation was produced using [employer] dictation software. please excuse any grammatical, word or spelling errors. Time with Patient: Less than 30
== END 2024-11-09 13:22 | disposition home or self-care (01) | DRG 871 ==
LOC: EC 20:19 → OBSVTOIN 11-06 02:37 → 5NMEDONC 11-06 02:37 → 3SCARD 11-06 04:48
PROVIDERS: ADMIT Hospitalist; ATTEND Hospitalist
DX: A41.51 Sepsis due to Escherichia coli [E. coli] (principal); N17.0 Acute kidney failure with tubular necrosis; E87.20 Acidosis, unspecified; I10 Essential (primary) hypertension; K57.12 Diverticulitis of small intestine without perforation or abscess without bleeding; N39.0 Urinary tract infection, site not specified; E87.1 Hypo-osmolality and hyponatremia; R65.20 Severe sepsis without septic shock; N20.0 Calculus of kidney; E83.42 Hypomagnesemia; Z87.891 Personal history of nicotine dependence; Z79.899 Other long term (current) drug therapy; Z96.652 Presence of left artificial knee joint
CPT/HCPCS: 36415; 71045; 74018; 74176; 76770; 80048; 80053; 81001; 83605; 83735; 85025; 85027; 85610; 85730; 87040; 87077; 87186; 87636; 93005; 96361; 96365; 96375; 99285